=== PATIENT | female | born 1935 | race Caucasian/White ===

== ENCOUNTER 2020-01-05 13:19 | Outpatient (CLI) | payer MEDICARE, MEDICAID, SELFPAY ==
--- NOTE | ~2020-01-05 | CT_ITS ---
EXAMINATION: CT abdomen pelvis w con EXAM DATE: 01/05/2020 14:18 INDICATION: Hiatal hernia. Chronic abdominal pain. TECHNIQUE: Spiral CT of the abdomen and pelvis was performed following intravenous injection of 100 m L Omnipaque 350. Axial, coronal and sagittal images were reviewed. The dose-length product (DLP) fo r this examination was 556.78 mGy-cm. The exposure was tailored according to patient size (auto mA e xposure control), and iterative reconstruction (ASIR) was used as additional dose reduction technique . There is no prior study for comparison. FINDINGS: The liver, pancreas are unremarkable. There are 2 splenic artery aneurysms which are unchan ged. Both appear to be likely thrombosed or mostly thrombosed. Some curvilinear density along the per iphery of the spleen probably from old resolved subcapsular hematoma. Left adrenal gland hyperplasia. Gallbladder not identified, patient likely has had cholecystectomy. Portal and splenic veins are pa tent. Kidneys enhance symmetrically. There is no hydronephrosis. The uterus is not identified and has likely been surgically resected. The bladder is unremarkable. There is no retroperitoneal or p elvic lymphadenopathy. There is moderate scattered arteriosclerotic disease. The appendix is normal. There is small sliding gastroesophageal hiatal hernia. There is mild sigmoid colonic diverticulosis. There is no adjacent inflammatory change to suggest diverticulitis. No mya e intraperitoneal gas. The heart is normal in size. There are no pericardial or pleural effusions. The lung bases are unremarkable. There are no osteoblastic or osteolytic lesions identified. IMPRESSION: 1. Small gastroesophageal hiatal hernia. 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 2. Mild sigmoid diverticulosis. Reviewed, dictated and finalized at location A. IMPRESSION: 1. Small gastroesophageal hiatal hernia. 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 2. Mild sigmoid diverticulosis.
--- NOTE | ~2020-01-05 | CT_ITS ---
EXAMINATION: CT thoracic spine wo con EXAM DATE: 01/05/2020 14:17 INDICATION: Chronic abdominal, back pain. Dyspnea on exertion. Hiatal hernia. TECHNIQUE: Spiral CT thoracic spine wo con was performed without contrast. Axial, coronal and sagit martha images were reviewed. The dose-length product (DLP) for this examination was 1028.10 mGy-cm. Th e exposure was tailored according to patient size (auto mA exposure control), and iterative reconstru ction (ASIR) was used as additional dose reduction technique. There is no prior study for comparison . FINDINGS: There are moderate-sized mid and lower thoracic endplate osteophytes. There is mild to mode rate mid and lower thoracic disc disease. The thoracic central canal and neural foramen are widely pa tent. The vertebral bodies are aligned in the AP dimension. Vertebral body heights are well-maintaine d. There is small gastroesophageal hiatal hernia. No endplate erosive change. IMPRESSION: Mild to moderate mid and lower thoracic spondylosis. Small hiatal hernia. No acute findings. Reviewed, dictated and finalized at location A.
[2020-01-05 14:10] LABS: Estimated Glomerular Filt Rate > 60
== END 2020-01-05 13:20 | disposition home or self-care (01) ==
PROVIDERS: PCP Student in an Organized Health Care Education/Training Program; Visit Provider Student in an Organized Health Care Education/Training Program
DX: M47.814 Spondylosis without myelopathy or radiculopathy, thoracic region (principal); K44.9 Diaphragmatic hernia without obstruction or gangrene; K57.90 Diverticulosis of intestine, part unspecified, without perforation or abscess without bleeding
CPT/HCPCS: 72128; 74177; Q9967

== ENCOUNTER 2020-01-17 01:36 | Outpatient (CLI) | payer MEDICARE, MEDICAID, SELFPAY ==
[2020-01-17 19:05] LABS: SARS-CoV-2 RNA PCR Negative
== END 2020-01-17 01:37 | disposition home or self-care (01) ==
LOC: ANHCOVIDDT 01:36
PROVIDERS: PCP Student in an Organized Health Care Education/Training Program; Visit Provider Internal Medicine Cardiovascular Disease
DX: Z01.812 Encounter for preprocedural laboratory examination (principal); Z20.828 Contact with and (suspected) exposure to other viral communicable diseases
CPT/HCPCS: 87635; C9803; U0003

== ENCOUNTER 2020-01-19 05:22 | Day surgery (SDC) | payer MEDICARE, MEDICAID, SELFPAY ==
[2020-01-18 16:55] VITALS: BMI 34.2
[2020-01-19] VITALS (15 sets, daily range): BP systolic 98–178; BP diastolic 50–84; PULSE 67–98; RESP 14–23; TEMP 35.9–36.7; O2SAT 93–100; BMI 32.5
[2020-01-19 10:51] LABS: Basophils Absolute Auto 0.1 K/mm3 (0.0-0.1); Basophils Percent Auto 0.7 % (0.2-1.2); Eosinophils Absolute Auto 0.1 K/mm3 (0-0.3); Eosinophils Percent Auto 1.3 % (0-4.4); Hematocrit 46.1 % (37.0-47.0); Hemoglobin 15.8 g/dL (12.0-15.0); Immature Granulocyte Absolute 0.03 K/mm3 (0.00-0.031); Immature Granulocyte Percent A 0.3 % (0-0.5); Lymphocytes Absolute Auto 4.39 K/mm3 (0.9-3.2); Mean Corpuscular HGB Conc 34.3 g/dl (32-36); Mean Corpuscular Hemoglobin 31.4 pg (26-34); Mean Corpuscular Volume 91.7 fl (80-100); Mean Platelet Volume 9.7 fl (7.4-10.4); Monocytes Absolute Auto 0.6 K/mm3 (0.1-0.6); Monocytes Percent Auto 5.4 % (2.6-8.5); Neutrophils Absolute Auto 5.7 K/mm3 (1.3-6.7); Neutrophils Percent Auto 52.3 % (45.5-73.1); Platelet Count Result 281 k/mm3 (150-375); Red Blood Count 5.03 M/mm3 (4.2-5.4); Red Cell Distribution Width 12.7 % (11.5-14.5)
[2020-01-19] MEDS: SODIUM CHLORIDE 0.9% IV 500 ML 100 ML IV CONT (11:00)
[2020-01-19 11:01] LABS: Prothrombin Time 13.3 Seconds (11.1-14.7)
[2020-01-19 11:02] LABS: Alanine Aminotransferase 24 U/L (4-35); Albumin Level 3.8 g/dL (3.5-5.1); Alkaline Phosphatase 91 U/L (38-126); Anion Gap 7 mmol/L (8-16); Aspartate Amino Transferase 28 U/L (14-36); Bilirubin,Total 0.5 mg/dL (0.2-1.3); Blood Urea Nitrogen 8 mg/dL (7-17); Calcium 9.2 mg/dL (8.4-10.2); Carbon Dioxide 30 mmol/L (22-30); Chloride 102 mmol/L (98-107); Estimated CRCL calculation 48 ml/min; Estimated Glomerular Filt Rate > 60; Glucose 115 mg/dL (65-105); Potassium 3.4 mmol/L (3.4-5.0); Sodium 139 mmol/L (137-145)
[2020-01-19 12:18] LABS: Activated Clotting Time 313 sec (74-137)
--- NOTE | 2020-01-19 13:37 | WPDHPUPDATE1 ---
History and Physical Update Update Date/Time: 01/19/20 13:37 History and Physical has been reviewed, including an updated exam of the patient. There are NO changes in the patient's condition. Risks, benefits, and alternatives have been discussed and questions answered. Patient agrees to proceed with procedure.
--- NOTE | 2020-01-19 13:37 | WPDMODSED ---
Moderate Sedation Note-Pt Data Patient Data Allergies Allergy/AdvReac Type Severity Reaction Status Date / Time No Known Allergies Allergy Mild Unverified 06/01/08 12:21 Home Medications Medication Instructions Recorded Confirmed Type aspirin [Adult Aspirin] 81 mg PO DAILY 01/18/20 01/18/20 History citalopram [Celexa] 40 mg PO DAILY 01/18/20 01/18/20 History clopidogrel [Plavix] 75 mg PO DAILY 01/18/20 01/18/20 History dicyclomine [Bentyl] 20 mg PO BID 01/18/20 01/18/20 History fluoxetine 20 mg PO DAILY 01/18/20 01/18/20 History isosorbide mononitrate [Imdur] 30 mg PO DAILY 01/18/20 01/18/20 History linaclotide [Linzess] 72 mcg PO DAILY 01/18/20 01/18/20 History lorazepam [Ativan] 1 mg PO BID PRN 01/18/20 01/18/20 History multivitamin with minerals 1 tablet PO DAILY 01/18/20 01/18/20 History [Multiple Vitamin-Minerals] nitroglycerin [Nitrostat] 0.4 mg SUBLINGUAL Q5M PRN 01/18/20 01/18/20 History pantoprazole [Protonix] 40 mg PO QAM 01/18/20 01/18/20 History rosuvastatin [Crestor] 20 mg PO DAILY 01/18/20 01/18/20 History Current Medications: Active Medications Sodium Chloride (Normal Saline Iv) 500 mls @ 100 mls/hr IV CONT .Q5H RODOLFO Sedation/Anesthesia: No previous sedation/anesthesia problems (including family history). PMF Social History Social History Smoking status: Never smoker Second hand tobacco smoke exposure: Yes Alcohol intake: never Substance use: never Living arrangements: with family Gender identity (if verbalized by the patient): Female Spiritual care concerns: No Mod Sed Physical Exam Physical Exam Pre Procedural Exam: Normal: Appearance, Eyes, Ears, Nose, Neck, Throat, Airway, Lungs, Heart Size, Heart Rate, Heart Rhythm, Neuro Exam, Abdomen, Liver, Kidneys, Spleen, Breasts, Genitalia, Extremities and Skin Hours since solid foods: 8 Hours since liquid intake: 8 Internal Medicine - PN: Obj Da Vital Signs Vital Signs: Vital Signs - 24 hr 01/19/20 10:56 Temperature 36.2 C L Pulse Rate 67 Respiratory Rate 20 Blood Pressure 138/71 Pulse Oximetry 97 Meds/Results Medications: Active Medications Generic Name Dose Route Start Last Admin Trade Name Yoly PRN Reason Stop Dose Admin Sodium Chloride 500 mls @ 100 mls/hr 01/19/20 06:45 Normal Saline Iv IV CONT .Q5H RODOLFO Labs CBC & Chem 7: 01/19/20 10:31 01/19/20 10:31 Labs: Laboratory Results - last 24 hr 01/19/20 01/19/20 01/19/20 10:31 10:31 10:31 WBC 11.0 H RBC 5.03 Hgb 15.8 H Hct 46.1 MCV 91.7 MCH 31.4 MCHC 34.3 RDW 12.7 Plt Count 281 MPV 9.7 Immature Gran % (Auto) 0.3 Neut % (Auto) 52.3 Lymph % (Auto) 40.0 [place] % (Auto) 5.4 Eos % (Auto) 1.3 Baso % (Auto) 0.7 Lymph # (Auto) 4.39 H [place] # (Auto) 0.6 Eos # (Auto) 0.1 Baso # (Auto) 0.1 Abs Immat Gran (auto) 0.03 Absolute Neuts (auto) 5.7 Absolute Nucleated RBC 0.0 Nucleated RBC % 0.0 PT 13.3 INR 1.0 Activ Coag Time Kaolin Sodium 139 Potassium 3.4 Chloride 102 Carbon Dioxide 30 Anion Gap 7 L BUN 8 Creatinine 0.70 Estim Creat Clear Calc 48 Estimated GFR > 60 Glucose 115 H Calcium 9.2 Total Bilirubin 0.5 AST 28 ALT 24 Alkaline Phosphatase 91 Total Protein 7.0 Albumin 3.8 01/19/20 12:13 WBC RBC Hgb Hct MCV MCH MCHC RDW Plt Count MPV Immature Gran % (Auto) Neut % (Auto) Lymph % (Auto) [place] % (Auto) Eos % (Auto) Baso % (Auto) Lymph # (Auto) [place] # (Auto) Eos # (Auto) Baso # (Auto) Abs Immat Gran (auto) Absolute Neuts (auto) Absolute Nucleated RBC Nucleated RBC % PT INR Activ Coag Time Kaolin 313 Sodium Potassium Chloride Carbon Dioxide Anion Gap BUN Creatinine Estim Creat Clear Calc Estimated GFR Glucose Calcium Total Bilirubin AST ALT Alkaline Phosphatase Total Protein Albumin ASA
--- NOTE | 2020-01-19 13:37 | WPDCARDPROC ---
Cardiac Cath Procedure Note Date of procedure:: 01/19/20 Performing physician:: Zofia Lazaro MD date of service 01/19/2020 Indication:: shortness of breath exertion Brief clinical history:: 84-year-old female with past history of 5 stents placed at [place] who was evaluated by me in the office for dyspnea on exertion that started several months ago but is worse on minimal exertion now. Given this history she was brought into denture laboratory technician to define coronary anatomy. Procedure Procedure performed:: 1-Moderate sedation that started at 11:44 a.m. and ended at 1:33 p.m. using 3mg of Versed and 75mcg fentanyl. The registered nurse was sujatha wan 2-Selective left and right coronary angiogram. 3-Left heart catheterization with measurement of LVEDP and measurement of gradient across aortic valve. 4- LV angiogram. 5- the prominent drug-eluting stent 2.75 x12 to mid PDA 6-Right common femoral arterial angiogram. 7-Deployment of 6 [place] Angio-Seal. Sedation/Medication given:: Moderate sedation. Access site:: Right common femoral artery. Estimated blood loss:: 10cc Procedure note:: After informed consent patient was brought in to denture laboratory technician with the was draped and prepped in usual manner. Moderate sedation was given and the right groin was infiltrated using 1% lidocaine. Five [place] sheath was obtained using micropuncture needle and the modified Seldinger technique. Selective left coronary angiogram was done using JL4 catheter with the tip of the catheter placed in the left main coronary artery. Selective right coronary angiogram was done using JR4 catheter with the tip of the catheter placed to the right coronary artery. After that 5 [place] pigtail catheter was advanced across the aortic valve into the left ventricle with measurement of LVEDP and measurement of gradient across aortic valve. LV angiogram was done. Right common femoral arterial angiogram was done. After that we tried several guides to engage the RCA. JR4 managed to engage the RCA but provided poor support. THEN WE TRIED AL1, AR1, WRP, multipurpose 1 and eventually we had to use the JR4 accepting the poor support. then we managed to wire the PDA with multiple attempts using different wires however the BMW wire was successful. Luge wire, whisper wire could not do the work. we had to use a GuideLiner given severe tortuosity in the mid RCA to the level the stent. then direct stenting of the PDA using 2.5 x 12 and a normal pressure for 20 seconds. Findings:: 1- left coronary artery is a large artery that divides into large LAD, large circumflex artery and large ramus. Left main is free of disease. 2- left anterior descending artery is a large artery that runs and wraps around the apex. has patent stents covering the proximal all the way to the distal end. 3- leftcircumflex artery is a large artery Large artery with minimal irregularities. The very distal end of the left circumflex artery with artery small in size has about 80%. 4- The ramus intermedius large artery and has ostial 30%. 4- right coronary artery is Large artery, dominant, very tortuous. Ostial there is about at least 50-60%. dampening of the pressures upon engagement. 5- LVEDP was 10 mm Hg and no gradient across aortic valve. 5- LV angiogram shows no significant wall motion abnormalities and ejection fraction 65%. 6- opening arterial pressure was 120/80 and closing pressure was 168/85. 7- right femoral artery angiogram shows no significant disease in the right common femoral artery. Conclusion:: Very challenging case however completed successfully with stenting of the PDA. Ostial RCA at least 50% and will need to be assessed. If patient continues to have symptoms most likely she will need to be stented in that area. Assessment and Plan Additional Plan continue aspirin and Plavix and aggressive risk factor modification for CAD.
[2020-01-19 13:42] LABS: Activated Clotting Time 241 sec (74-137)
--- NOTE | 2020-01-19 13:47 | ECG_ITS ---
Measurements Intervals [place] Rate: 73 P: 46 [place]: 161 QRS: 9 QRSD: 82 T: 80 QT: 387 QTc: 429 Interpretive Statements SINUS RHYTHM MINIMAL Q WAVES- INFERIOR LEADS BORDERLINE ST-T WAVE ABNORMALITY- ANTEROLAT/HIGH LAT LEADS BASELINE ARTIFACT- V5 BORDERLINE ECG Electronically Signed On 01-19-2020 14:36:47 CDT by Saúl Kapadia D.O.
[2020-01-19] MEDS: SODIUM CHLORIDE 0.9% IV 1,000 ML 125 ML IV CONT (14:00)
[2020-01-19] MEDS: ACETAMINOPHEN 500 MG TABLET 1000 MG PO ×2 (15:20→20:34)
[2020-01-19] MEDS: ONDANSETRON INJ 4 MG/2 ML VIAL IV PUSH (15:37)
[2020-01-19] MEDS: NITROGLYCERIN SL 0.4 MG TABLET SUBLINGUAL (15:38)
[2020-01-19] MEDS: fentaNYL CITRATE INJ (*CRX) 100 MCG/2 ML VIAL 25 MCG IV PUSH (15:39)
--- NOTE | 2020-01-19 15:44 | ECG_ITS ---
Measurements Intervals [place] Rate: 78 P: 9 [place]: 134 QRS: 30 QRSD: 82 T: 126 QT: 387 QTc: 442 Interpretive Statements SINUS RHYTHM ST-T WAVE ABNORMALITY IN HIGH LATERAL LEADS- CONSIDER ISCHEMIA BASELINE ARTIFACT- I, II, III, AVR, AVL, AVF, V1-V6 ABNORMAL ECG Electronically Signed On 01-19-2020 15:53:33 CDT by Saúl Kapadia D.O.
--- NOTE | 2020-01-19 16:34 | PC.NURSE ---
Patient complaining of Chest pain during cath and post procedure, Zohra Kruger contacted Tylenol, Nitro, Zofran and Fentanyl ordered and given. Additional EKG obtained, no change. Zohra came to see patient and now patient has had relief. Will continue to monitor.
[2020-01-19] MEDS: DICYCLOMINE HCL 10 MG CAPSULE 20 MG PO (17:43)
[2020-01-19] MEDS: LORazepam (*CRX) 1 MG TABLET PO (20:33)
--- NOTE | 2020-01-19 23:53 | ECG_ITS ---
Measurements Intervals [place] Rate: 79 P: 31 PA: 147 QRS: 7 QRSD: 81 T: 65 QT: 377 QTc: 433 Interpretive Statements SINUS RHYTHM MINIMAL Q WAVES- INFERIOR LEADS BORDERLINE ST-T WAVE ABNORMALITY- ANTEROLAT/HIGH LAT LEADS BORDERLINE ECG Electronically Signed On 01-20-2020 7:02:06 CDT by Saúl Kapadia D.O.
[2020-01-20] VITALS (10 sets, daily range): BP systolic 95–112; BP diastolic 39–60; PULSE 67–85; RESP 15–21; TEMP 36.2–36.9; O2SAT 92–94
[2020-01-20] MEDS: NITROGLYCERIN SL 0.4 MG TABLET SUBLINGUAL (00:15)
--- NOTE | 2020-01-20 00:28 | PC.NURSE ---
One SL nitro given at 0015 with midsternal chest pain rated 4. Checked patient at 0025 and patient states pain is 2-3. BP 95/41 after one SL nitro. Unable to give morphine d/t BP. Patient states pain is tolerable. Dr. Amin states doctor will evaluate patient in the morning.
[2020-01-20] MEDS: MORPHINE SULFATE (*CRX) 2 MG/ML INJ 1 MG IV PUSH (01:27)
[2020-01-20] MEDS: ACETAMINOPHEN 500 MG TABLET 1000 MG PO ×2 (02:22→09:09)
[2020-01-20 05:30] LABS: Anion Gap 3 mmol/L (8-16); Blood Urea Nitrogen 10 mg/dL (7-17); Calcium 8.1 mg/dL (8.4-10.2); Carbon Dioxide 30 mmol/L (22-30); Chloride 103 mmol/L (98-107); Estimated CRCL calculation 47 ml/min; Estimated Glomerular Filt Rate > 60; Glucose 105 mg/dL (65-105); Potassium 3.3 mmol/L (3.4-5.0); Sodium 136 mmol/L (137-145)
[2020-01-20] MEDS: ROSUVASTATIN 10 MG TABLET 20 MG PO (09:09)
[2020-01-20] MEDS: DICYCLOMINE HCL 10 MG CAPSULE 20 MG PO (09:09)
[2020-01-20] MEDS: ISOSORBIDE MONONITRATE 30 MG TAB.ER.24H PO (09:09)
[2020-01-20] MEDS: CLOPIDOGREL BISULFATE 75 MG TABLET PO (09:09)
[2020-01-20] MEDS: ASPIRIN 81 MG CHEWABLE TABLET PO (09:09)
[2020-01-20] MEDS: THERAPEUTIC MULTIVITAMINS/MINERALS TAB (*BKC) 1 TABLET PO (09:09)
[2020-01-20] MEDS: PANTOPRAZOLE 40 MG TABLET PO (09:09)
[2020-01-20] MEDS: LORazepam (*CRX) 1 MG TABLET PO (09:10)
[2020-01-20 10:40] LABS: Magnesium 1.7 mg/dL (1.6-2.3)
[2020-01-20] MEDS: POTASSIUM CHLORIDE 20 MEQ TABLET 40 MEQ PO (11:31)
--- NOTE | 2020-01-20 12:28 | PM.DS ---
DS: Admitting Diagnosis Admitting Diagnosis Admitting Diagnosis: unstable angina DS: Discharge Diagnosis Discharge Diagnosis (1) CAD (coronary artery disease), [place] coronary artery: Code(s): I25.10 - Atherosclerotic heart disease of [place] coronary artery without angina pectoris Status: Acute Assessment and Plan: Cardiac catheterization 01/19/2020:1- left coronary artery is a large artery that divides into large LAD, large circumflex artery and large ramus. Left main is free of disease. 2- left anterior descending artery is a large artery that runs and wraps around the apex. has patent stents covering the proximal all the way to the distal end. 3- left circumflex artery is a large artery Large artery with minimal irregularities. The very distal end of the left circumflex artery with artery small in size has about 80%. 4- The ramus intermedius large artery and has ostial 30%. 4- right coronary artery is Large artery, dominant, very tortuous. Ostial there is about at least 50-60%. dampening of the pressures upon engagement. 5- LVEDP was 10 mm Hg and no gradient across aortic valve. 5- LV angiogram shows no significant wall motion abnormalities and ejection fraction 65%. 6- opening arterial pressure was 120/80 and closing pressure was 168/85. 7- right femoral artery angiogram shows no significant disease in the right common femoral artery. She proceeded on to very challenging case however completed successfully with stenting of the PDA. Ostial RCA at least 50% and will need to be assessed. If patient continues to have symptoms most likely she will need to be stented in that area. She had pain after the procedure. EKGs were unchanged. She did receive some fentanyl after Tylenol was tried. She also had some discomfort overnight. On assessment in the morning this discomfort has been there for some time. There is discomfort when she takes in a deep breath, coughs, moves in certain directions. Recommend Tylenol 650 mg at least every 8 hours. Due to the discomfort she had post PCI and need for evaluation of the right coronary artery willl have her see Dr Lazaro on Thursday, 04/2019. (2) Hypokalemia: Code(s): E87.6 - Hypokalemia Status: Acute Assessment and Plan: Supplemented. Will recheck BMP on 01/23/2020 DS: Summary Hospital Course Reason for hospitalization: CAD with worsening dyspnea on exertion Hospital Course: 84-year-old female with past history of 5 stents placed to [place] who was evaluated in the office by Dr Lazaro for dyspnea on exertion that started several months ago but is worse with minimal exertion. Cardiac catheterization was recommended. See results above. She had chest discomfort after the procedure. Tylenol was tried however did not relieve her discomfort and a dose of fentanyl did relieve her pain. She had more discomfort overnight. EKGs were unchanged. Troponin rise and conchis expected post procedure. On evaluation in the morning the discomfort is reproducible with deep inspiration, movement and chest palpation. Recommend Tylenol 650 mg at least every 8 hours around the clock over the weekend. Due to the need for evaluation of the right coronary artery she will see Dr Lazaro on 01/23/2020. She was also hypokalemic. Potassium was supplemented. She was some supplementation over the weekend and repeat a BMP on Thursday01/23/2020. Time Spent with Patient Time attestation: Total time spent providing and/or coordinating discharge services: 20 minutes in the room discussing her chest pain, treatment with Tylenol for musculoskeletal discomfort, activity restrictions and follow-up. 10 minutes to do discharge orders. 10 minutes to do discharge summary. Total time providing and coronary discharge services: 40 minutes. Exam Narrative: E
[2020-01-20] MEDS: MAGNESIUM OXIDE 400 MG TABLET PO (12:29)
== END 2020-01-20 13:00 | disposition home or self-care (01) ==
LOC: ANHCATHLAB 10:16 → ANHCPC 16:00
PROVIDERS: Internal Medicine Cardiovascular Disease; Nurse Practitioner Adult Health; PCP Student in an Organized Health Care Education/Training Program; Visit Provider Internal Medicine Cardiovascular Disease
PROC: 4A023N7 Measurement of Cardiac Sampling and Pressure, Left Heart, Percutaneous Approach (ICD-10-PCS; CPT 93452; principal; 2020-01-19 11:30)
DX: I25.10 Atherosclerotic heart disease of native coronary artery without angina pectoris (principal); E87.6 Hypokalemia; R06.09 Other forms of dyspnea; R07.9 Chest pain, unspecified; Z95.5 Presence of coronary angioplasty implant and graft; Z79.02 Long term (current) use of antithrombotics/antiplatelets; Z79.82 Long term (current) use of aspirin
CPT/HCPCS: 36415; 80048; 80053; 83735; 84484; 85025; 85610; 93005; 93458; A9270; C1760; C1769; C1874; C1887; C1894; C9600; G0269; J0461; J0583; J1644; J2250; J2270; J2405; J3010; J7030; J7040

== ENCOUNTER 2020-01-23 11:22 | Outpatient (CLI) | payer MEDICARE, MEDICAID, SELFPAY ==
--- NOTE | ~2020-01-23 | CT_ITS ---
EXAMINATION:CT chest high resolution wo co DATE: 01/23/2020 14:44 INDICATION: Dyspnea on exertion. TECHNIQUE: Computed tomography (CT) of the chest was performed without intravenous contrast. Automate d exposure control and iterative reconstruction technique were employed. The dose-length product (DLP ) was 239.55 mGy-cm. COMPARISON: CT abdomen and pelvis 07/10/17 FINDINGS: There is mild emphysema. There is mild bronchiectasis in the inferior lungs. There are smal l pleural effusions. There are chronic mild peripheral reticular opacities in the lungs with a lower lung predominance. There are a few pulmonary nodules measuring up to 3 mm, likely benign. A calcified left lung nodule and calcified left hilar lymph nodes are consistent with old granulomatous disease. Cardiomegaly is noted with left atrial enlargement. There are coronary artery calcifications. No per icardial effusion. There is mild mediastinal lymphadenopathy, likely reactive. There are peripheral c alcifications in the spleen, likely from old injury. There is a 1.9 cm rim calcified saccular aneurys m of the splenic artery. There is a 9 mm rim calcified saccular aneurysm of the splenic artery. There is a small sliding hiatal hernia. There are bridging endplate osteophytes at multiple levels in the spine, consistent with diffuse idiopathic skeletal hyperostosis (DISH). Thoracic kyphosis and severe spondylosis are noted. There is mild chronic anterior wedging of T7 vertebral body. IMPRESSION: 1. Small pleural effusions. 2. Mild chronic lung disease including mild emphysema and mild lower lung bronchiectasis. 3. Cardiomegaly. 4. Small sliding hiatal hernia. Reviewed, dictated and finalized at location A. AL BASIC PROGRAMMER IMPRESSION: 1. Small pleural effusions. 2. Mild chronic lung disease including mild emphysema and mild lower lung bronc hiectasis. 3. Cardiomegaly. 4. Small sliding hiatal hernia.
[2020-01-23 12:51] LABS: Anion Gap 4 mmol/L (8-16); Blood Urea Nitrogen 6 mg/dL (7-17); Calcium 8.7 mg/dL (8.4-10.2); Carbon Dioxide 31 mmol/L (22-30); Chloride 103 mmol/L (98-107); Estimated Glomerular Filt Rate > 60; Glucose 111 mg/dL (65-105); Potassium 3.7 mmol/L (3.4-5.0); Sodium 138 mmol/L (137-145)
== END 2020-01-23 11:23 | disposition home or self-care (01) ==
PROVIDERS: PCP Student in an Organized Health Care Education/Training Program; Referring Provider Nurse Practitioner Adult Health; Visit Provider Internal Medicine Cardiovascular Disease
DX: E87.6 Hypokalemia (principal); R06.00 Dyspnea, unspecified; J90 Pleural effusion, not elsewhere classified; I51.7 Cardiomegaly; K44.9 Diaphragmatic hernia without obstruction or gangrene
CPT/HCPCS: 36415; 71250; 80048; 83735

== ENCOUNTER 2020-01-24 08:16 | Inpatient (IN) | payer MEDICARE, MEDICAID, SELFPAY ==
[2020-01-24] VITALS (22 sets, daily range): BP systolic 128–172; BP diastolic 53–95; PULSE 84–108; RESP 16–31; TEMP 35.7–37; O2SAT 93–96; BMI 32.9; BMI 33.7
--- NOTE | ~2020-01-24 | XR_ITS ---
EXAMINATION: XR chest 1V portable INDICATION: Chest pain TECHNIQUE: Portable AP chest at 0905 hours COMPARISON: CT from yesterday FINDINGS: There are small pleural effusions. Stable cardiomegaly is noted. There are coronary artery stents. There is mild by basilar atelectasis. No focal airspace opacity is identified. There is no pn eumothorax. IMPRESSION: 1. Cardiomegaly. 2. Small pleural effusions. Reviewed, dictated and finalized at location A. NG AND FILLING MACHINE OPERATOR
--- NOTE | ~2020-01-24 | CT_ITS ---
EXAMINATION: CT brain wo con EXAM DATE: 01/24/2020 11:23 INDICATION: Intermittent confusion . Dizziness. TECHNIQUE: Spiral CT of the head was performed without contrast. Axial, coronal and sagittal images were reviewed. The dose-length product (DLP) for this examination was 605.33 mGy-cm. The exposure w as tailored according to patient size, and iterative reconstruction (ASIR) was used as additional dos e reduction technique. There is no prior study for comparison. FINDINGS: There is no acute intraparenchymal hemorrhage. No evidence of intraparenchymal brain mass lesion. No evidence of acute infarction. Please note that initial head CT has limited sensitivity f or small or acute infarctions. There is moderate periventricular and subcortical hypodensity, nonspec ific but probably related to small vessel ischemic disease. There is moderate prominence of the sul ci and ventricles related to cerebral atrophy. There is intracranial carotid arteriosclerosis. The re are no extra-axial collections. There is no mass effect or midline shift. The orbits are unremar kable. Soft tissue is unremarkable. The visualized sinuses and mastoid air cells are well aerated. IMPRESSION: 1. No acute intracranial findings. 2. Chronic age related findings. Reviewed, dictated and finalized at location B. DIP TINNING SUPERVISOR
--- NOTE | ~2020-01-24 | XR_ITS ---
EXAMINATION: XR chest 2V DATE: 01/26/2020 09:20 INDICATION: Volume overload TECHNIQUE: PA and lateral views of the chest are obtained. COMPARISON: 01/24/2020 FINDINGS: There are small pleural effusions. Minimal airspace opacities are present in the lung bases . Stable cardiomegaly is noted. There is no pneumothorax. Coronary artery stents are noted. There is moderate thoracic spondylosis. IMPRESSION: 1. Small pleural effusions. 2. Minimal airspace opacities of the lung bases, consistent with atelectasis versus pneumonia. 3. Cardiomegaly. Reviewed, dictated and finalized at location A. RSHED COORDINATOR IMPRESSION: 1. Small pleural effusions. 2. Minimal airspace opacities of the lung bases, consistent with atelectasis ve rsus pneumonia. 3. Cardiomegaly.
--- NOTE | 2020-01-24 08:47 | ECG_ITS ---
Measurements Intervals [place] Rate: 98 P: 9 SD: 161 QRS: 7 QRSD: 86 T: 250 QT: 281 QTc: 360 Interpretive Statements SINUS OR ECTOPIC ATRIAL RHYTHM WITH SHORT SD INTERVAL FREQUENT ATRIAL PREMATURE COMPLEXES BORDERLINE ST-T WAVE ABNORMALITY- DIFFUSE LEADS BASELINE ARTIFACT- I, II, III, AVR, AVL, AVF, V6 ABNORMAL ECG Electronically Signed On 01-24-2020 13:34:08 DIAGRAMMER by Saúl Kapadia D.O.
[2020-01-24 08:58] LABS: Basophils Absolute Auto 0.1 K/mm3 (0.0-0.1); Basophils Percent Auto 0.7 % (0.2-1.2); Eosinophils Absolute Auto 0.4 K/mm3 (0-0.3); Eosinophils Percent Auto 3.2 % (0-4.4); Hematocrit 41.2 % (37.0-47.0); Hemoglobin 13.7 g/dL (12.0-15.0); Immature Granulocyte Absolute 0.03 K/mm3 (0.00-0.031); Immature Granulocyte Percent A 0.2 % (0-0.5); Lymphocytes Percent Auto 44.4 % (18.3-44.2); Mean Corpuscular HGB Conc 33.3 g/dl (32-36); Mean Corpuscular Hemoglobin 30.7 pg (26-34); Mean Corpuscular Volume 92.4 fl (80-100); Mean Platelet Volume 9.9 fl (7.4-10.4); Monocytes Absolute Auto 0.8 K/mm3 (0.1-0.6); Monocytes Percent Auto 5.5 % (2.6-8.5); Neutrophils Absolute Auto 6.2 K/mm3 (1.3-6.7); Platelet Count Result 398 k/mm3 (150-375); Red Blood Count 4.46 M/mm3 (4.2-5.4); Red Cell Distribution Width 13.1 % (11.5-14.5); White Blood Count 13.5 K/mm3 (4.5-10.0)
--- NOTE | 2020-01-24 09:05 | ED.GENADULT ---
HPI - General Adult General Chief complaint: Unspecified Stated complaint: CP Time Seen by Provider: 01/24/20 08:22 Source: patient and family Mode of arrival: ambulatory Limitations: dementia History of Present Illness HPI narrative: This patient is an 84 year old female with history of CAD s/p stent, fibromyalgia, IBS, and hyperlipidemia who presents for evaluation of shortness of breath and intermittent chest pain. Patient reports she had a cardiac catheterization last week and she has been sick since the procedure. She reports she has been having cough, nausea, and body aches since her procedure. Her daughter states patient has been complaining of intermittent chest pain but patient denies chest pain. She was given aspirin and nitroglycerin x 1 by EMS. She also reports sob that is chronic but her daughter states she seems worse. Her daughter also reports when they woke patient up this morning she appeared to be confused but that resolved within minutes. Related Data Home Medications Medication Instructions Recorded Confirmed Linzess 72 mcg PO DAILY 01/18/20 01/24/20 aspirin 81 mg PO DAILY 01/18/20 01/24/20 clopidogrel [Plavix] 75 mg PO DAILY 01/18/20 01/24/20 dicyclomine 20 mg PO BID PRN 01/18/20 01/24/20 fluoxetine 20 mg PO DAILY 01/18/20 01/24/20 isosorbide mononitrate 30 mg PO DAILY 01/18/20 01/24/20 multivitamin with minerals 1 tablet PO DAILY 01/18/20 01/24/20 [Multiple Vitamin-Minerals] nitroglycerin [Nitrostat] 0.4 mg SUBLINGUAL Q5M PRN 01/18/20 01/24/20 pantoprazole [Protonix] 40 mg PO QAM 01/18/20 01/24/20 rosuvastatin [Crestor] 20 mg PO DAILY 01/18/20 01/24/20 cyanocobalamin (vitamin B-12) 1,000 mcg IM MONTHLY 01/24/20 01/24/20 sucralfate 10 ml PO BID 01/24/20 01/24/20 umeclidinium-vilanterol [Anoro 1 inh INHALATION DAILY 01/24/20 01/24/20 Ellipta] Allergies Allergy/AdvReac Type Severity Reaction Status Date / Time No Known Allergies Allergy Mild Verified 01/24/20 13:54 Review of Systems Review of Systems: All systems reviewed & are unremarkable except as noted in HPI and below Cardiovascular: Cardiovascular: Reports chest pain and Reports chest pain at rest Respiratory: Respiratory: Denies chest congestion, Reports cough and Denies hemoptysis [facility] Past Medical History Medical History Chronic obstructive pulmonary disease Coronary artery disease Fibromyalgia Gastroesophageal reflux disease Hypertension Irritable bowel syndrome Surgical History Surgical History History of cardiac catheterization History of stent x6. Status post drug-eluting stent to the right PDA on 01/19/[address] Lazaro. Family History Family History Sibling Emphysema of lung Chronic obstructive pulmonary disease Hypertension Father Asthma Social History Social History Social History: Surrogate decision maker: Code status: Smoking status: Former smoker Second hand tobacco smoke exposure: Yes Alcohol intake: never Substance use: never Additional living arrangements comments: Resides in [place]. Gender identity (if verbalized by the patient): Female Spiritual care concerns: No Exam Const: General: cooperative, alert, awake, Physically active and ill appearing Nutritional Appearance: well nourished HENMT: Head: normocephalic and atraumatic Ears: TM's normal bilaterally Face and sinus: face symmetric Mouth: Yes Normal oral and palatal mucosa present, Yes lip normal, Yes oropharynx normal and Yes moist mucous membranes Eyes: EOM: EOMs intact bilaterally Chest: Chest palpation & inspection: tenderness Resp: Effort & Inspection: normal respiratory effort and able to speak in complete sentences Auscultation: rales bilateral in the lower l
[2020-01-24 09:22] LABS: Anion Gap 7 mmol/L (8-16); Blood Urea Nitrogen 5 mg/dL (7-17); Calcium 9.2 mg/dL (8.4-10.2); Carbon Dioxide 30 mmol/L (22-30); Chloride 103 mmol/L (98-107); Estimated CRCL calculation 55 ml/min; Estimated Glomerular Filt Rate > 60; Glucose 120 mg/dL (65-105); Potassium 3.6 mmol/L (3.4-5.0); Sodium 140 mmol/L (137-145)
--- NOTE | 2020-01-24 09:31 | PC.NURSE ---
Pt ambulatory to bathroom for clean catch urine collection. Pt voided, missing the speciman nascimento provided. Pt assisted back to bed, note that pt is short of breath with exertion. Spo2 93-94% after returning from bathroom. Dr. Posadas made aware.
[2020-01-24 09:36] LABS: Troponin I 0.204 ng/mL (0.000-0.034)
[2020-01-24 09:38] LABS: INR 0.9; Partial Thromboplastin Time 26.9 SECONDS (22.3-36.8); Prothrombin Time 13.1 Seconds (11.1-14.7)
--- NOTE | 2020-01-24 09:39 | ECG_ITS ---
Measurements Intervals [place] Rate: 88 P: -20 [place]: 128 QRS: 8 QRSD: 85 T: 32 QT: 385 QTc: 468 Interpretive Statements SINUS RHYTHM FREQUENT ATRIAL PREMATURE COMPLEXES ST-T WAVE ABNORMALITY IN HIGH LATERAL LEADS- CONSIDER ISCHEMIA ABNORMAL ECG Electronically Signed On 01-24-2020 16:25:39 SILICATOR by Saúl Kapadia D.O.
[2020-01-24 10:05] LABS: Alveolar/Arterial O2 Gradient 40.5 mmHg; Base Excess ABG 2.1 mEq/l (+/-2.0); Carboxyhemoglobin 1.5 % THb (0-2.0); Device ROOM AIR; Fractional Inspired Oxygen 21 %; HCO3 ABG 24.7 mEq/l (22.0-26.0); Methemoglobin ABG 0.2 %THb (0-1.5); Modified Allen's Test Pass; Oxygen Saturation ABG 95.6 % (95.0-100.0); Oxyhemoglobin 93.3 % THb (90.0-100.0); PCO2 ABG 32.3 mmHg (35.0-45.0); PO2 ABG 70.6 mmHg (80.0-100.0); PO2 FiO2 Ratio Arterial Blood 3.36 %; Site Drawn RIGHT RADIAL; Total Hemoglobin 13.7 g/dL (12.0-18.0); pH ABG 7.501 (7.350-7.450)
--- NOTE | 2020-01-24 11:18 | PC.NURSE ---
Pt helped up to bedside commode for urine. Pt states she is willing to be admitted after speaking with Dr. Posadas. UA sent as ordered. Report ot Lynne Page RN, to continue care. Awaiting admission orders at present time.
[2020-01-24 11:23] LABS: Add Urine Microscopic? NO; Appearance Urine Clear (Clear); Bilirubin Urine Negative (Negative); Blood Urine Negative (Negative); Color Urine Colorless (Yellow); Glucose Urine UA Negative (Negative); Ketones Urine Negative (Negative); Leukocyte Esterase Ur Negative LEU/UL (Negative); Nitrate Urine Negative (Negative); Protein Urine Negative (Negative); Urobilinogen Urine Negative mg/dL (<2.0)
[2020-01-24 11:31] LABS: Specific Grav Ur 1.004 (1.001-1.035)
[2020-01-24 12:32] LABS: Troponin I 0.152 ng/mL (0.000-0.034)
--- NOTE | 2020-01-24 13:00 | PC.NURSE ---
Patient and family updated that patient will go to room 200 soon. Report called to KARRI Amaral in IMU.
--- NOTE | 2020-01-24 13:13 | ADMGEN ---
This patient, Caroline Ferguson, was admitted to IMU Room 200-01. Patient/family oriented to hospital policies and general routines including ID bracelet, bed and alarms, visiting hours, pain management, procedures, bathroom and other care routines, personal items, smoking policy, room service/diet, and visiting hours. Information on how to activate the Rapid Response Team has been discussed. Patient/Family are encouraged to report perceived risks to care and to ask questions if they do not understand what they are told or what they should do.
--- NOTE | 2020-01-24 13:30 | PM.IMHP ---
H&P: HPI History of Present Illness Date/Time: 01/24/20 13:30 Chief complaint: Intermittent chest pain and shortness of breath. Narrative: Caroline Ferguson is an 84-year-old female with coronary artery disease, hypertension, COPD, and GERD who presented to the emergency department earlier today via EMS from home for evaluation of intermittent chest pain and shortness of breath. She had a cardiac catheterization on 01/19/[address] Lazaro for evaluation of ongoing dyspnea and underwent a challenging PCI with drug-eluting stent to the PDA. The vessel was very torturous and she was also noted to have at least 50% ostial RCA lesion, 80% small distal circumflex lesion, and non obstructing ramus disease. She was kept overnight due to chest pain thereafter with a rise in her troponins to around 2 with expected fall and she was discharged home, chest pain-free, the following day. Unfortunately she has not felt well since that time, with continued dyspnea with minimal exertion and intermittent chest pain associated with nausea, shortness of breath, and hot flashes. Additionally she reports occasional palpitations and ?quivering heart? which seems to occur mainly at nighttime, which is disruptive to her sleep. The chest pain resolves spontaneously within about 5 to 10 minutes and she has not tried nitroglycerin. A chest CT on 01/23/2020 which showed small pleural effusions, cardiomegaly, and mild chronic lung disease including mild emphysema and mild lower lung bronchiectasis. With further questioning she has had a cough, occasionally productive of yellowish sputum and a deep cough, which developed the night after her cardiac catheterization ?and I think I probably have pneumonia.? She is not currently having chest pain or palpitations at the time my evaluation. No fever, chills, or sweats. She denies sinus congestion, rhinorrhea, otalgia, and odynophagia. Appetite has been as per usual, but she reports that she always has a bad taste in her mouth, but this is not new. No anosmia or dysgeusia. She denies vomiting. No dysphagia or concerns for aspiration. No sick contacts or exposure to those positive for COVID-19. No history of atrial fibrillation. Review of Systems Review of Systems: Narrative: Twelve systems were reviewed with pertinent positives and negatives as per HPI. No headache or neck ache. She denies syncope and near syncope. No vertigo. No vomiting. She has had longstanding problems with constipation over the years however her bowels are more regular after she was started on Linzess. She has not been sleeping well recently due to ?quivering? in her heart, and she goes on to say that for decades she took lorazepam 0.5 mg at bedtime for sleep however her new primary care provider discontinued that and instead start her on fluoxetine. Denies history of sleep apnea. No pleuritic pain orthopnea, or edema. Except as documented, all other systems were reviewed and are negative. PENDING SALE TO [facility] Past Medical History Medical History (Updated 01/24/20 @ 20:57 by Leah Adams PA-C) Anxiety Chronic obstructive pulmonary disease Coronary artery disease Fibromyalgia Gastroesophageal reflux disease Hypertension Irritable bowel syndrome Surgical History Surgical History (Updated 01/24/20 @ 20:57 by Leah Adams PA-C) History of cardiac catheterization History of stent x6. Status post drug-eluting stent to the right PDA on 01/19/[address] Lazaro. History of carpal tunnel surgery of right wrist History of cataract extraction History of cholecystectomy History of hysterectomy History of total left knee replacement Family History Family History Sibling Emphysema of lung Chronic obstructive pulmonary disease Hypertension Father Asthma Social History Social History (Updated 01/24/20 @ 20:58 by Leah Adams PA-C) Social History: Surrogate decision maker: Kate Guerrero and
[2020-01-24 15:36] LABS: Troponin I 0.137 ng/mL (0.000-0.034)
--- NOTE | 2020-01-24 15:52 | PM.CNCAR ---
Assessment and Plan Assessment and plan (1) CAD (coronary artery disease), [place] coronary artery: Code(s): I25.10 - Atherosclerotic heart disease of [place] coronary artery without angina pectoris Status: Acute Assessment and Plan: significant disease. probable [place] last week. It was a complicated case due to tortuosity. Continue aspirin and clopidogrel. Also continue isosorbide mononitrate, rosuvastatin. Will start her on metoprolol tartrate 12.5 mg p.o. b.i.d. both because of her palpitations and as an antianginal agent. Plan on repeat coronary angiogram on following diuresis and other workup including a 2D echocardiogram with Doppler to ensure there is no significant pericardial effusion. This also will allow some time for workup for her elevated white blood cell count per hospitalist if needed. (2) Elevated troponin: Code(s): R77.8 - Other specified abnormalities of plasma proteins Status: Acute Assessment and Plan: Trending down. Likely secondary to event from last week. (3) Chest pain: Code(s): R07.9 - Chest pain, unspecified Status: Acute Assessment and Plan: As above (4) Dyspnea: Code(s): R06.00 - Dyspnea, unspecified Status: Acute Assessment and Plan: severe dyspnea with mild activity. She does have some pleural effusions. Will start with some diuresis with 40 mg of IV furosemide. Potassium chloride 40 mEq p.o. x1 will also be given. Echocardiogram will be ordered. Probably anginal equivalent (5) Essential hypertension: Code(s): I10 - Essential (primary) hypertension Status: Acute (6) Palpitations: Code(s): R00.2 - Palpitations Status: Acute Assessment and Plan: metoprolol will be started. Telemetry monitoring (7) Fibromyalgia: Code(s): M79.7 - Fibromyalgia Status: Acute Assessment and Plan: she does have fibromyalgia pain but her pain last week and recently is different History of Present Illness History of Present Illness Consult date/time: 01/24/20 15:52 Requesting physician: Billy Casper MD Consult reason: shortness of breath Reason For Visit: chest pain/leukocytosis Narrative: Date of service 01/24/2020 reason for consultation: shortness of breath History: Patient is a an 84-year-old female with history of CAD and 5 stents placed in [place] In 2018. She is now followed by Dr. Lazaro. Last week she did undergo a cardiac catheterization. She was having severe dyspnea prior to her angiogram. Decision was made to proceed directly to cardiac catheterization to define her anatomy. She did undergo a complex PCI to the mid PDA with a 2.75 x 12 mm drug-eluting stent. There was severe tortuosity and poor guide support. There is also an ostial 50% lesion. She also had stents in the LAD which were patent. She did have nonobstructive ramus disease and 80% small distal circumflex disease. Normal EDP normal EF. After her angiogram patient did have some chest pain. She was given morphine. Troponins were elevated and they did peak over 2. She also had musculoskeletal chest pain. Symptoms stabilized enough that she was discharged the following day. She does state though that she had chest pain on the night of discharge and eventually her chest pain did resolve. She does have reproducible chest wall pain but her chest pain that she describes after her angiogram was different than this. Since her angiogram, her dyspnea continues to worsen. She did see Dr. Lazaro yesterday who ordered a CT angiogram to rule out for PE. She did not have a PE but did have small bilateral effusions as well as some emphysema. Cardiomegaly was noted also. Because of her continued and worsening symptoms she came to the ER today and was admitted. She has been having some pain in between her shoulder blades and up into her jaw On the night of discharge. She has been weake
[2020-01-24] MEDS: ALBUTEROL SULFATE (*SP) AEROSOL 1 PUFF 2 PUFF INHALATION ×2 (16:07→20:07)
[2020-01-24] MEDS: FUROSEMIDE INJ 40 MG/4 ML VIAL IV PUSH (16:59)
[2020-01-24] MEDS: POTASSIUM CHLORIDE 20 MEQ PACKET (FOR LIQUID) 40 MEQ PO (16:59)
[2020-01-24] MEDS: PANTOPRAZOLE 40 MG TABLET PO (17:03)
[2020-01-24] MEDS: METOPROLOL TARTRATE 12.5 MG TABLET PO (21:18)
[2020-01-24] MEDS: ONDANSETRON INJ 4 MG/2 ML VIAL IV PUSH (21:18)
[2020-01-24] MEDS: LORazepam (*CRX) 0.5 MG TABLET PO (21:18)
[2020-01-24] MEDS: guaiFENesin 12 HR 600 MG TABCR PO (22:14)
[2020-01-24 22:38] LABS: CRP 1.5 mg/dL (<1.0)
[2020-01-25] VITALS (19 sets, daily range): BP systolic 103–144; BP diastolic 50–59; PULSE 66–86; RESP 16–20; TEMP 35.9–36.4; O2SAT 93–96
--- NOTE | 2020-01-25 | ECHO_ITS ---
Patient Info Name: Caroline Ferguson Age: 84 years : 1935 Gender: Female Ht: 60 in Wt: 172 lbs BSA: 1.85 m2 HR: 68 bpm BP: 138 / 54 mmHg Heart Rhythm: Sinus Rhythm Technical Quality: Good Exam Date: 01/25/2020 11:20 AM Exam Location: [facility] Patient Status: Inpatient Admit Date: 01/24/2020 Staff Ordering Physician: Michael Winchester MD Frame Sample And Pattern Supervisor: Toy Long, THEO, RT Attending Provider: Billy Casper MD Referring Physician: Ranulfo LOWERY; Exam Type: CA echo doppler color flow Study Info Indications R06.02 - Shortness of breath Complete two-dimensional, color flow and Doppler transthoracic echocardiogram is performed with contrast to opacify the left ventricle and to improve the deliniation of the left ventricle endocardial borders. Summary 1. Left ventricular chamber dimension is normal. 2. Left ventricular systolic function is hyperdynamic, estimated at >70%. 3. There is moderately increased left ventricular wall thickness. 4. The left ventricular diastolic function is grade I diastolic dysfunction. 5. Right ventricular chamber dimension is mildly enlarged. 6. There is mild mitral valve regurgitation. 7. There is mild tricuspid valve regurgitation. 8. There is mild pulmonic regurgitation. Left Ventricle Left ventricular chamber dimension is normal. Left ventricular systolic function is hyperdynamic, estimated at >70%. There is moderately increased left ventricular wall thickness. The left ventricular diastolic function is grade I diastolic dysfunction. Right Ventricle Right ventricular chamber dimension is mildly enlarged. Right ventricular systolic function is normal. Left Atria Left atrial chamber dimension is severely enlarged. Right Atria Right atrial chamber dimension is normal. Atrial Septum Intact interatrial septum visualized by color flow imaging. Aortic Valve The aortic valve is trileaflet. There is mild aortic valve sclerosis. There is no aortic valve stenosis. There is trace aortic valve regurgitation. Pulmonic Valve The pulmonic valve is normal. There is no pulmonic valve stenosis. There is mild pulmonic regurgitation. Mitral Valve The mitral valve has calcified annulus. There is no mitral valve stenosis. There is mild mitral valve regurgitation. Tricuspid Valve The tricuspid valve leaflets are normal. There is no significant tricuspid valve stenosis. There is mild tricuspid valve regurgitation. No pulmonary hypertension, estimated pulmonary arterial systolic pressure is 26 mmHg. Pericardium/Pleural The pericardium appears normal. There is no pericardial effusion. Inferior Vena Cava Normal inferior vena cava with >50% collapse upon inspiration consistent with normal right atrial pressure, 5 mmHg. Aorta The aortic root size at the sinus of Valsalva is normal. The prox ascending aorta size is normal. Left Ventricular Outflow Tract Name Value Normal LVOT 2D LVOT Diameter 2.0 cm LVOT Doppler LVOT Peak Gradient 4 mmHg LVOT Mean Gradient 2 mmHg LVOT VTI
[2020-01-25 04:46] LABS: Basophils Absolute Auto 0.1 K/mm3 (0.0-0.1); Basophils Percent Auto 0.8 % (0.2-1.2); Eosinophils Absolute Auto 0.3 K/mm3 (0-0.3); Eosinophils Percent Auto 2.5 % (0-4.4); Hemoglobin 13.5 g/dL (12.0-15.0); Immature Granulocyte Absolute 0.02 K/mm3 (0.00-0.031); Immature Granulocyte Percent A 0.2 % (0-0.5); Lymphocytes Absolute Auto 5.12 K/mm3 (0.9-3.2); Lymphocytes Percent Auto 41.6 % (18.3-44.2); Mean Corpuscular HGB Conc 33.8 g/dl (32-36); Mean Corpuscular Hemoglobin 30.8 pg (26-34); Mean Corpuscular Volume 91.3 fl (80-100); Mean Platelet Volume 9.3 fl (7.4-10.4); Monocytes Absolute Auto 0.9 K/mm3 (0.1-0.6); Monocytes Percent Auto 7.3 % (2.6-8.5); Neutrophils Absolute Auto 5.9 K/mm3 (1.3-6.7); Neutrophils Percent Auto 47.6 % (45.5-73.1); Platelet Count Result 377 k/mm3 (150-375); Red Blood Count 4.38 M/mm3 (4.2-5.4); Red Cell Distribution Width 12.9 % (11.5-14.5); White Blood Count 12.3 K/mm3 (4.5-10.0)
[2020-01-25 05:13] LABS: Alanine Aminotransferase 24 U/L (4-35); Albumin Level 3.7 g/dL (3.5-5.1); Alkaline Phosphatase 77 U/L (38-126); Anion Gap 6 mmol/L (8-16); Aspartate Amino Transferase 38 U/L (14-36); Bilirubin,Total 0.7 mg/dL (0.2-1.3); Blood Urea Nitrogen 9 mg/dL (7-17); Calcium 8.9 mg/dL (8.4-10.2); Carbon Dioxide 32 mmol/L (22-30); Chloride 100 mmol/L (98-107); Estimated CRCL calculation 47 ml/min; Estimated Glomerular Filt Rate > 60; Glucose 109 mg/dL (65-105); Magnesium 1.9 mg/dL (1.6-2.3); Potassium 4.2 mmol/L (3.4-5.0); Sodium 138 mmol/L (137-145)
[2020-01-25] MEDS: SUCRALFATE SUSP 100 MG/ML 10 ML UDC 1000 MG PO ×2 (05:33→15:52)
[2020-01-25 05:42] LABS: Atypical Lymphocytes Present; Large Platelets Present; Platelet Estimate Adequate (Adequate)
[2020-01-25] MEDS: ONDANSETRON INJ 4 MG/2 ML VIAL IV PUSH (06:59)
[2020-01-25] MEDS: ALBUTEROL SULFATE (*SP) AEROSOL 1 PUFF 2 PUFF INHALATION ×2 (08:38→13:00)
[2020-01-25] MEDS: METOPROLOL TARTRATE 12.5 MG TABLET PO (09:02)
[2020-01-25] MEDS: PANTOPRAZOLE 40 MG TABLET PO (09:02)
[2020-01-25] MEDS: FLUoxetine HCL 20 MG CAPSULE PO (09:02)
[2020-01-25] MEDS: ROSUVASTATIN 10 MG TABLET 20 MG PO (09:03)
[2020-01-25] MEDS: ISOSORBIDE MONONITRATE 30 MG TAB.ER.24H PO (09:03)
[2020-01-25] MEDS: THERAPEUTIC MULTIVITAMINS/MINERALS TAB (*BKC) 1 TABLET PO (09:04)
[2020-01-25] MEDS: CLOPIDOGREL BISULFATE 75 MG TABLET PO (09:04)
[2020-01-25] MEDS: ASPIRIN 81 MG CHEWABLE TABLET PO (09:04)
[2020-01-25] MEDS: PERFLUTREN LIPID MICROSPHERES 1.5 ML VIAL DILUTED TO 10 ML TOTAL VOLUME IV PUSH (11:51)
[2020-01-25] MEDS: guaiFENesin 12 HR 600 MG TABCR PO ×2 (12:06→20:27)
--- NOTE | 2020-01-25 14:53 | PM.PNCARD ---
Progress Note: A&P Assessment and Plan (1) CAD (coronary artery disease), [place] coronary artery: Code(s): I25.10 - Atherosclerotic heart disease of [place] coronary artery without angina pectoris Status: Acute Assessment and Plan: significant disease. probable [place] last week. It was a complicated case due to tortuosity. Continue aspirin and clopidogrel. Also continue isosorbide mononitrate, rosuvastatin. will increase her metoprolol tartrate 25 mg p.o. b.i.d. both because of her palpitations and as an antianginal agent. temporarily Plan on repeat coronary angiogram but this may happen as an outpatient at this point since she is feeling much better. (2) Elevated troponin: Code(s): R77.8 - Other specified abnormalities of plasma proteins Status: Acute Assessment and Plan: Trending down. Likely secondary to event from last week. (3) Chest pain: Code(s): R07.9 - Chest pain, unspecified Status: Acute Assessment and Plan: As above (4) Dyspnea: Code(s): R06.00 - Dyspnea, unspecified Status: Acute Assessment and Plan: much improved. Will give another dose of furosemide 40 mg IV x1. PA and lateral chest x-ray tomorrow. (5) Essential hypertension: Code(s): I10 - Essential (primary) hypertension Status: Acute (6) Palpitations: Code(s): R00.2 - Palpitations Status: Acute Assessment and Plan: metoprolol will be started. Telemetry monitoring (7) Fibromyalgia: Code(s): M79.7 - Fibromyalgia Status: Acute Assessment and Plan: she does have fibromyalgia pain but her pain last week and recently is different Subjective Date/time seen: 01/25/20 14:53 Interval history: 84-year-old with CAD and volume overload Date of service 01/25/2020: She feels much better with diuresis and low-dose metoprolol therapy. She is not short of breath at rest. She has no chest pain. Review of Systems Review of Systems: All systems reviewed & are unremarkable except as noted in HPI and below Constitutional: Constitutional: Reports fatigue, Denies headache(s), Reports lethargy and Reports weakness Eyes: Eyes: Denies blurry vision ENT: Reports Normal hearing present, Denies headache(s), Denies lip swelling and Denies neck pain Cardiovascular: Cardiovascular: Denies chest pain, Denies dyspnea and Denies dyspnea on exertion Respiratory: Respiratory: Reports dyspnea and Reports dyspnea on exertion Gastrointestinal: Gastrointestinal: Reports nausea Genitourinary: Genitourinary: Denies flank pain Musculoskeletal: Musculoskeletal: Denies neck pain and Denies numbness Integumentary/Breasts: Skin/Breast: Denies dry skin Neurologic: Reports Normal hearing present, Denies headache(s), Denies numbness and Reports weakness Psychiatric: Psychiatric: Reports anxiety Endocrine: Endocrine: Reports fatigue Hematologic/Lymphatic: Hematologic/Lymphatic: Denies easy bleeding Allergic/Immunologic: Allergic/Immunologic: Denies lip swelling Exam Narrative: Exam Narrative: Patient is awake alert. Appears to be in no acute distress And comfortable Const: General: comfortable and no acute distress HENMT: General nose exam: no epistaxis Eyes: Sclera: sclerae normal Neck: Neck: supple and no JVD Chest: Other: patient does have reproducible chest wall pain to palpation Resp: Auscultation: diminished lung sounds Cardio: Rhythm: regular rhythm Skin: General skin exam: normal color Neuro: Cranial nerves: Yes Normal hearing present Cognition (Neuro): normal cognition Speech: normal speech Extrem: General: no edema Psych: Affect: Anxious affect present Objective Data Vital Signs Vital Signs: Vital Signs - 24 hr 01/24/20 16:00 01/24/20 16:07 01/24/20 16:54 Temperature 37.0 C Pulse Rate 101 H 91 91 Respiratory Rate 18 22 H Blood Pressure 170/67 H Pulse Oximetry 95 94 01/24/20
--- NOTE | 2020-01-25 15:45 | PM.IMPN ---
Progress Note: A&P Assessment and Plan (1) Chest pain: Code(s): R07.9 - Chest pain, unspecified Status: Acute (2) Elevated troponin: Code(s): R77.8 - Other specified abnormalities of plasma proteins Status: Acute Assessment and Plan: low and trending down. Probable residual from previous non ST elevation [place]. Cardiology has seen and is considering repeat catheterization but timing is not quite known. Beta-erin metoprololis added to her medical regime and increased today to 25 Q 12 (3) Leukocytosis, unspecified: Code(s): D72.829 - Elevated white blood cell count, unspecified Status: Acute Assessment and Plan: probable stress related. No obvious source of any infection with CT scan showing no infiltrate, and urinalysis benign. WBC down today and will recheck in a.m. (4) Hypertension: Code(s): I10 - Essential (primary) hypertension Status: Inactive Assessment and Plan: well controlled continue her beta-erin and nitrate (5) Chronic obstructive pulmonary disease: Code(s): J44.9 - Chronic obstructive pulmonary disease, unspecified Status: Inactive Assessment and Plan: continue inhaler (6) Coronary artery disease: Code(s): I25.10 - Atherosclerotic heart disease of [place] coronary artery without angina pectoris Status: Inactive Assessment and Plan: as above with elevated troponin continue dual anti-platelet, nitrate, and beta-erin with statin (7) Gastroesophageal reflux disease: Code(s): K21.9 - Gastro-esophageal reflux disease without esophagitis Status: Inactive Assessment and Plan: PPI (8) DVT prophylaxis: Code(s): Z29.9 - Encounter for prophylactic measures, unspecified Status: Acute Assessment and Plan: Lovenox and increase activity Subjective Date/time seen: 01/25/20 15:45 Interval history: date of visit 01/24. 84-year-old with known coronary artery disease and recent stenting to a PDA presented with malaise, palpitations, and chest pain. Troponins were slightly elevated and thought to be possibly from recent non ST elevation [place]. This a.m. she complains that she feels horrible but no specific complaints of chest pain or shortness of breath Exam Narrative: Exam Narrative: blood pressure 132/54 pulse is 70 sat 95% on room air afebrile neck supple no adenopathy or bruits lungs clear CV regular rate rhythm hear no murmurs or gallops abdomen soft nontender no masses extremities without edema dorsalis pedis posterior tibial 1+ neuro alert no focal deficits Objective Data Vital Signs Vital Signs: Vital Signs - 24 hr 01/24/20 16:00 01/24/20 16:07 01/24/20 16:54 Temperature 37.0 C Pulse Rate 101 H 91 91 Respiratory Rate 18 22 H Blood Pressure 170/67 H Pulse Oximetry 95 94 01/24/20 18:00 01/24/20 19:40 01/24/20 20:00 Temperature 35.7 C L Pulse Rate 104 H 108 H 95 Respiratory Rate 20 Blood Pressure 128/79 Pulse Oximetry 96 01/24/20 20:07 01/24/20 20:08 01/24/20 21:18 Temperature Pulse Rate 97 97 103 H Respiratory Rate 20 20 Blood Pressure Pulse Oximetry 96 01/24/20 22:00 01/24/20 23:45 01/25/20 00:00 Temperature 36.1 C L Pulse Rate 98 85 78 Respiratory Rate 20 Blood Pressure 142/53 H Pulse Oximetry 94 01/25/20 02:00 01/25/20 03:48 01/25/20 04:00 Temperature 35.9 C L Pulse Rate 75 73 70 Respiratory Rate 16 Blood Pressure 138/54 L Pulse Oximetry 94 01/25/20 06:00 01/25/20 08:00 01/25/20 08:15 Temperature 36.4 C Pulse Rate 77 74 78 Respiratory Rate 18 Blood Pressure 121/50 L Pulse Oximetry 94 01/25/20 09:02 01/25/20 10:00 01/25/20 12:00 Temperature 36.2 C L Pulse Rate 78 74 70 Respiratory Rate 20 Blood Pressure 132/54 L Pulse Oximetry 95 01/25/20 12:23 Temperature Pulse Rate 68 Respiratory Rate Blood Pressure Pulse Oximetry Inta
[2020-01-25] MEDS: FUROSEMIDE INJ 40 MG/4 ML VIAL IV PUSH (15:51)
[2020-01-25] MEDS: ENOXAPARIN 40 MG/0.4 ML SYRINGE SUB-Q (20:26)
[2020-01-25] MEDS: METOPROLOL TARTRATE 25 MG TABLET PO (20:27)
[2020-01-25] MEDS: LORazepam (*CRX) 1 MG TABLET PO (20:28)
[2020-01-26] VITALS (10 sets, daily range): BP systolic 114–119; BP diastolic 42–57; PULSE 60–76; RESP 16–20; TEMP 36.3–36.7; O2SAT 93–97
[2020-01-26 04:57] LABS: Basophils Absolute Auto 0.1 K/mm3 (0.0-0.1); Basophils Percent Auto 0.8 % (0.2-1.2); Eosinophils Absolute Auto 0.4 K/mm3 (0-0.3); Hemoglobin 13.6 g/dL (12.0-15.0); Immature Granulocyte Absolute 0.04 K/mm3 (0.00-0.031); Immature Granulocyte Percent A 0.3 % (0-0.5); Lymphocytes Absolute Auto 5.85 K/mm3 (0.9-3.2); Lymphocytes Percent Auto 44.4 % (18.3-44.2); Mean Corpuscular Volume 91.1 fl (80-100); Mean Platelet Volume 9.6 fl (7.4-10.4); Monocytes Absolute Auto 0.9 K/mm3 (0.1-0.6); Monocytes Percent Auto 6.7 % (2.6-8.5); Neutrophils Absolute Auto 5.9 K/mm3 (1.3-6.7); Neutrophils Percent Auto 44.8 % (45.5-73.1); Platelet Count Result 425 k/mm3 (150-375); Red Blood Count 4.39 M/mm3 (4.2-5.4); Red Cell Distribution Width 12.7 % (11.5-14.5); White Blood Count 13.2 K/mm3 (4.5-10.0)
[2020-01-26 05:20] LABS: Anion Gap 8 mmol/L (8-16); Blood Urea Nitrogen 11 mg/dL (7-17); Calcium 9.1 mg/dL (8.4-10.2); Carbon Dioxide 32 mmol/L (22-30); Chloride 96 mmol/L (98-107); Estimated CRCL calculation 41 ml/min; Estimated Glomerular Filt Rate > 60; Glucose 106 mg/dL (65-105); Potassium 3.8 mmol/L (3.4-5.0); Sodium 136 mmol/L (137-145)
[2020-01-26] MEDS: SUCRALFATE SUSP 100 MG/ML 10 ML UDC 1000 MG PO (06:11)
[2020-01-26 06:28] LABS: Atypical Lymphocytes Present; Platelet Estimate Adequate (Adequate)
[2020-01-26] MEDS: ASPIRIN 81 MG CHEWABLE TABLET PO (08:45)
[2020-01-26] MEDS: ISOSORBIDE MONONITRATE 30 MG TAB.ER.24H PO (08:45)
[2020-01-26] MEDS: METOPROLOL TARTRATE 25 MG TABLET PO (08:45)
[2020-01-26] MEDS: FLUoxetine HCL 20 MG CAPSULE PO (08:45)
[2020-01-26] MEDS: THERAPEUTIC MULTIVITAMINS/MINERALS TAB (*BKC) 1 TABLET PO (08:45)
[2020-01-26] MEDS: ROSUVASTATIN 10 MG TABLET 20 MG PO (08:45)
[2020-01-26] MEDS: guaiFENesin 12 HR 600 MG TABCR PO (08:45)
[2020-01-26] MEDS: CLOPIDOGREL BISULFATE 75 MG TABLET PO (08:45)
[2020-01-26] MEDS: PANTOPRAZOLE 40 MG TABLET PO (08:45)
--- NOTE | 2020-01-26 14:15 | PM.PNCARD ---
Progress Note: A&P Assessment and Plan (1) CAD (coronary artery disease), [place] coronary artery: Code(s): I25.10 - Atherosclerotic heart disease of [place] coronary artery without angina pectoris Status: Acute Assessment and Plan: significant disease. probable MA last week. It was a complicated case due to tortuosity. Continue aspirin and clopidogrel. Also continue isosorbide mononitrate, rosuvastatin. continue metoprolol. Continue outpatient workup and decision regarding repeat angiogram to be defer to Dr. Lazaro as an outpatient (2) Elevated troponin: Code(s): R77.8 - Other specified abnormalities of plasma proteins Status: Acute Assessment and Plan: Trending down. Likely secondary to event from last week. (3) Chest pain: Code(s): R07.9 - Chest pain, unspecified Status: Acute Assessment and Plan: As above (4) Dyspnea: Code(s): R06.00 - Dyspnea, unspecified Status: Acute Assessment and Plan: much improved. start furosemide 20 mg p.o. daily (5) Essential hypertension: Code(s): I10 - Essential (primary) hypertension Status: Acute (6) Palpitations: Code(s): R00.2 - Palpitations Status: Acute Assessment and Plan: metoprolol will be started. Telemetry monitoring (7) Fibromyalgia: Code(s): M79.7 - Fibromyalgia Status: Acute Assessment and Plan: she does have fibromyalgia pain but her pain last week and recently is different Okay for discharge from my perspective Subjective Date/time seen: 01/26/20 14:15 Interval history: 84-year-old with CAD and volume overload Date of service 01/26/2020:She feels well and denies any chest pain shortness of breath Review of Systems Review of Systems: All systems reviewed & are unremarkable except as noted in HPI and below Constitutional: Constitutional: Reports fatigue, Denies headache(s), Reports lethargy and Reports weakness Eyes: Eyes: Denies blurry vision ENT: Reports Normal hearing present, Denies headache(s), Denies lip swelling and Denies neck pain Cardiovascular: Cardiovascular: Denies chest pain, Reports dyspnea and Reports dyspnea on exertion Respiratory: Respiratory: Reports dyspnea and Reports dyspnea on exertion Gastrointestinal: Gastrointestinal: Reports nausea Genitourinary: Genitourinary: Denies flank pain Musculoskeletal: Musculoskeletal: Denies neck pain and Denies numbness Integumentary/Breasts: Skin/Breast: Denies dry skin Neurologic: Reports Normal hearing present, Denies headache(s), Denies numbness and Reports weakness Psychiatric: Psychiatric: Reports anxiety Endocrine: Endocrine: Reports fatigue Hematologic/Lymphatic: Hematologic/Lymphatic: Denies easy bleeding Allergic/Immunologic: Allergic/Immunologic: Denies lip swelling Exam Narrative: Exam Narrative: Patient is awake alert. Appears to be in no acute distress And comfortable Const: General: comfortable and no acute distress HENMT: General nose exam: no epistaxis Eyes: Sclera: sclerae normal Neck: Neck: supple and no JVD Chest: Other: patient does have reproducible chest wall pain to palpation Resp: Auscultation: diminished lung sounds Cardio: Rhythm: regular rhythm Skin: General skin exam: normal color Neuro: Cranial nerves: Yes Normal hearing present Cognition (Neuro): normal cognition Speech: normal speech Extrem: General: no edema Psych: Affect: Anxious affect present Objective Data Vital Signs Vital Signs: Vital Signs - 24 hr 01/25/20 16:00 01/25/20 18:00 01/25/20 18:50 Temperature 36.4 C 35.9 C L Pulse Rate 77 81 86 Respiratory Rate 18 18 Blood Pressure 103/52 L 116/59 L Pulse Oximetry 93 96 01/25/20 20:00 01/25/20 20:27 01/25/20 22:00 Temperature Pulse Rate 79 78 68 Respiratory Rate Blood Pressure Pulse Oximetry 01/25/20 23:58 01/26/20 00:00 01/26/20 02:00 T
[2020-01-26] MEDS: FUROSEMIDE 20 MG TABLET PO (15:26)
--- NOTE | 2020-01-26 16:51 | PM.DS ---
DS: Admitting Diagnosis Admitting Diagnosis Admitting Diagnosis: Intermittent chest pain and shortness of breath. DS: Discharge Diagnosis Discharge Diagnosis (1) Chest pain: Code(s): R07.9 - Chest pain, unspecified Status: Acute Assessment and Plan: a typical and did not appear to be ischemic in nature. Seen by Cardiology and plan will be repeat catheterization in the near future to reassess recent stent and need for further stenting echo EF 50% with diastolic dysfunction. Cardiology added furosemide 20 mg daily to her regime. Will have BMP drawn in 1 week (2) Elevated troponin: Code(s): R77.8 - Other specified abnormalities of plasma proteins Status: Acute Assessment and Plan: low and trending down. Probable residual from previous non ST elevation [place]. Cardiology has seen and is planning repeat catheterization in future. Beta-erin, metoprolol added to her medical regime and increased to 25 Q 12 (3) Leukocytosis, unspecified: Code(s): D72.829 - Elevated white blood cell count, unspecified Status: Acute Assessment and Plan: . No obvious source of any infection with CT scan showing no infiltrate, and urinalysis benign. and slight increased amount of lymphocytes with atypical lymphocytes noted on smear suggesting possible early CLL. no anemia and platelets are adequate, follow-up with primary care WBC recheck in 1 week (4) Hypertension: Code(s): I10 - Essential (primary) hypertension Status: Inactive Assessment and Plan: well controlled continue her beta-erin and nitrate (5) Chronic obstructive pulmonary disease: Code(s): J44.9 - Chronic obstructive pulmonary disease, unspecified Status: Inactive Assessment and Plan: continue inhaler (6) Coronary artery disease: Code(s): I25.10 - Atherosclerotic heart disease of [place] coronary artery without angina pectoris Status: Inactive Assessment and Plan: as above with elevated troponin continue dual anti-platelet, nitrate, and beta-erin with statin (7) Gastroesophageal reflux disease: Code(s): K21.9 - Gastro-esophageal reflux disease without esophagitis Status: Inactive Assessment and Plan: PPI DS: Summary Hospital Course Hospital Course: 84-year-old hypertensive anxious white female with recent stenting to the PDA presented with atypical chest pain, palpitations, and shortness of breath. High-resolution CT showed no infiltrates and echocardiogram revealed no wall motion abnormalities with EF of 70% and grade 1 diastolic dysfunction. low-dose beta-erin was added to her regime as with furosemide at discharge. She had no further chest discomfort and did not complain of further palpitations with the beta-erin either. No arrhythmias seen on monitor.. She was discharged home to follow-up with cardiology for probable outpatient cardiac catheterization to reassess her anatomy. CBC and BMP in 1 week Time Spent with Patient Time attestation: Total time spent providing and/or coordinating discharge services: 35 minutes Exam Narrative: Exam Narrative: condition on discharge blood pressure 114/50 pulse 62 saturating 97% on room air afebrile lungs clear CV regular rate rhythm abdomen soft nontender extremities without edema distal pulses 1 to 2+ neuro alert oriented she was up and about feeling much better and able to be discharged home in stable condition DS: Data Data Completed and Pending Labs on day of discharge: Labs from last 24 hours 01/26/20 01/26/20 04:10 04:10 WBC 13.2 H RBC 4.39 Hgb 13.6 Hct 40.0 MCV 91.1 MCH 31.0 MCHC 34.0 RDW 12.7 Plt Count 425 H MPV 9.6 Immature Gran % (Auto) 0.3 Neut % (Auto) 44.8 L Lymph % (Auto) 44.4 H [place] % (Auto) 6.7 Eos % (Auto) 3.0 Baso % (Auto) 0.8 Lymph # (Auto) 5.85 H [place] # (Auto) 0.9 H Eos # (Auto) 0.4 H Baso # (Au
[2020-01-27 19:05] LABS: Procalcitonin 0.19 ng/mL (<0.10)
== END 2020-01-26 15:40 | disposition home or self-care (01) | DRG 281 ==
LOC: ANHED 08:48 → ANHIMU 12:49 → ANH3MEDSUR 01-25 18:12 → ANHIMU 01-25 18:15
PROVIDERS: Physician Assistant; Admitting Provider Internal Medicine; Emergency Provider General Practice; PCP Student in an Organized Health Care Education/Training Program; Visit Provider Internal Medicine
DX: R07.89 Other chest pain (principal); I22.2 Subsequent non-ST elevation (NSTEMI) myocardial infarction; J90 Pleural effusion, not elsewhere classified; I25.10 Atherosclerotic heart disease of native coronary artery without angina pectoris; K21.9 Gastro-esophageal reflux disease without esophagitis; J44.9 Chronic obstructive pulmonary disease, unspecified; D72.829 Elevated white blood cell count, unspecified; M79.7 Fibromyalgia; R00.2 Palpitations; I10 Essential (primary) hypertension; K58.9 Irritable bowel syndrome, unspecified; F41.9 Anxiety disorder, unspecified; Z96.652 Presence of left artificial knee joint; Z95.5 Presence of coronary angioplasty implant and graft; Z87.891 Personal history of nicotine dependence; Z98.42 Cataract extraction status, left eye; Z98.41 Cataract extraction status, right eye; Z90.49 Acquired absence of other specified parts of digestive tract; Z90.710 Acquired absence of both cervix and uterus
CPT/HCPCS: 36415; 36600; 70450; 71045; 71046; 71250; 80048; 80053; 81003; 82375; 82805; 83050; 83735; 84145; 84484; 85025; 85610; 85730; 86140; 93005; 93306; 94640; 94667; 94668; 96375; 97110; 97161; 97165; 99285; A9270; G0378; J1650; J1940; J2405; Q9957

== ENCOUNTER 2020-02-02 06:53 | Emergency (ER) | payer MEDICARE, MEDICAID, SELFPAY ==
[2020-02-02 06:54] VITALS: BP 109/96; PULSE 76; RESP 22; TEMP 36; O2SAT 96
[2020-02-02 07:19] VITALS: BP 116/67; PULSE 80; RESP 25; O2SAT 97
[2020-02-02 07:31] VITALS: BP 124/53; PULSE 73; RESP 25; O2SAT 99
[2020-02-02 07:46] VITALS: BP 122/52; PULSE 69; RESP 28; O2SAT 99
[2020-02-02 08:01] VITALS: BP 138/55; PULSE 70; RESP 23; O2SAT 99
[2020-02-02] MEDS: LORazepam INJ (*CRX) 2 MG/ML VIAL 1 MG IV PUSH (08:17)
--- NOTE | 2020-02-02 08:26 | ED.ANXIETY ---
HPI - Anxiety General Chief Complaint: Anxiety Stated Complaint: N/V/D, ANXIETY Time Seen by Provider: 02/02/20 08:13 Source: patient and family Mode of arrival: ambulatory Limitations: no limitations History of Present Illness HPI narrative: 84 years old white female presents with anxiety symptoms, restlessness, unable to eat, unable to sleep, unable to function as usual. Patient used to be on lorazepam for the last 20 years, stopped cold turkey 1 month ago. 2 weeks later patient started having the above symptoms. Patient denies any fever, chills, nausea, vomiting, suicidal or homicidal ideation. Related Data Home Medications Medication Instructions Recorded Confirmed Linzess 72 mcg PO DAILY 01/18/20 01/24/20 aspirin 81 mg PO DAILY 01/18/20 01/24/20 clopidogrel [Plavix] 75 mg PO DAILY 01/18/20 01/24/20 dicyclomine 20 mg PO BID PRN 01/18/20 01/24/20 fluoxetine 20 mg PO DAILY 01/18/20 01/24/20 isosorbide mononitrate 30 mg PO DAILY 01/18/20 01/24/20 multivitamin with minerals 1 tablet PO DAILY 01/18/20 01/24/20 [Multiple Vitamin-Minerals] nitroglycerin [Nitrostat] 0.4 mg SUBLINGUAL Q5M PRN 01/18/20 01/24/20 pantoprazole [Protonix] 40 mg PO QAM 01/18/20 01/24/20 rosuvastatin [Crestor] 20 mg PO DAILY 01/18/20 01/24/20 Anoro Ellipta 1 inh INHALATION DAILY 01/24/20 01/24/20 cyanocobalamin (vitamin B-12) 1,000 mcg IM MONTHLY 01/24/20 01/24/20 sucralfate 10 ml PO BID 01/24/20 01/24/20 lorazepam 0.5 mg PO BID PRN 01/25/20 01/25/20 Allergies Allergy/AdvReac Type Severity Reaction Status Date / Time No Known Allergies Allergy Mild Verified 01/24/20 13:54 Review of Systems Review of Systems: Narrative: CONSTITUTIONAL: Denies fever, chills, or sweats. EYES: Denies visual changes, redness, or discharge. ENT: Denies rhinorrhea, congestion, sore throat, or otalgia. CARDIOVASCULAR: Denies chest pain, palpitations, or edema. RESPIRATORY: Denies cough or dyspnea. GASTROINTESTINAL: Denies abdominal pain, nausea, vomiting, or diarrhea. GENITOURINARY: Denies dysuria or hematuria. SKIN: Denies rash or itching. MUSCULOSKELETAL: Denies back pain, joint pain, or myalgia. NEUROLOGIC: Denies headache, numbness, or weakness. PSYCHIATRIC: Denies anxiety or depression. [facility] Past Medical History Medical History Anxiety Chronic obstructive pulmonary disease Coronary artery disease Fibromyalgia Gastroesophageal reflux disease Hypertension Irritable bowel syndrome Surgical History Surgical History History of cardiac catheterization History of stent x6. Status post drug-eluting stent to the right PDA on 01/19/[address] Lazaro. History of carpal tunnel surgery of right wrist History of cataract extraction History of cholecystectomy History of hysterectomy History of total left knee replacement Family History Family History Sibling Emphysema of lung Chronic obstructive pulmonary disease Hypertension Father Asthma Social History Social History Social History: Surrogate decision maker: Kate Cesar and Kimberly Clay, daughters. Code status: Full code. Smoking status: Former smoker Second hand tobacco smoke exposure: Yes Alcohol intake: never Substance use: never Additional living arrangements comments: Resides in [place] with her 2 daughters and 4 cats. Gender identity (if verbalized by the patient): Female Spiritual care concerns: No Exam Narrative: Exam Narrative: General appearance: Well-developed, well-nourished Skin: Normal color Chest and respiratory: Airway patent, no respiratory distress, no accessory muscle use Heart: Regular rate/rhythm Abdomen: Soft, nontender, no organomegaly, quiet bowel sounds Vascular: Normal peripheral pulses, normal capillary refill. Musculoskeletal: Norm
[2020-02-02 08:31] VITALS: BP 111/71; PULSE 71; RESP 26; O2SAT 94
== END 2020-02-02 08:54 | disposition home or self-care (01) ==
PROVIDERS: Emergency Provider Emergency Medicine; PCP Student in an Organized Health Care Education/Training Program
DX: F41.9 Anxiety disorder, unspecified (principal); Z79.82 Long term (current) use of aspirin; Z79.02 Long term (current) use of antithrombotics/antiplatelets; J44.9 Chronic obstructive pulmonary disease, unspecified; I25.10 Atherosclerotic heart disease of native coronary artery without angina pectoris; M79.7 Fibromyalgia; K21.9 Gastro-esophageal reflux disease without esophagitis; I10 Essential (primary) hypertension; K58.9 Irritable bowel syndrome, unspecified; Z98.49 Cataract extraction status, unspecified eye; Z96.652 Presence of left artificial knee joint; Z87.891 Personal history of nicotine dependence
CPT/HCPCS: 96374; 99284; J2060

== ENCOUNTER 2020-07-06 16:06 | Outpatient (CLI) | payer MEDICARE, MEDICAID, SELFPAY ==
[2020-07-06 16:41] LABS: Basophils Absolute Auto 0.1 K/mm3 (0.0-0.1); Basophils Percent Auto 0.9 % (0.2-1.2); Eosinophils Absolute Auto 0.3 K/mm3 (0-0.3); Eosinophils Percent Auto 2.3 % (0-4.4); Hematocrit 44.3 % (37.0-47.0); Hemoglobin 14.9 g/dL (12.0-15.0); Immature Granulocyte Absolute 0.04 K/mm3 (0.00-0.031); Immature Granulocyte Percent A 0.3 % (0-0.5); Lymphocytes Percent Auto 51.3 % (18.3-44.2); Mean Corpuscular HGB Conc 33.6 g/dl (32-36); Mean Corpuscular Hemoglobin 30.8 pg (26-34); Mean Corpuscular Volume 91.7 fl (80-100); Mean Platelet Volume 9.8 fl (7.4-10.4); Monocytes Percent Auto 7.5 % (2.6-8.5); Neutrophils Absolute Auto 5.2 K/mm3 (1.3-6.7); Neutrophils Percent Auto 37.7 % (45.5-73.1); Platelet Count Result 305 k/mm3 (150-375); Red Blood Count 4.83 M/mm3 (4.2-5.4); White Blood Count 13.7 K/mm3 (4.5-10.0)
[2020-07-06 16:53] LABS: Anion Gap 5 mmol/L (8-16); Blood Urea Nitrogen 11 mg/dL (7-17); Calcium 8.5 mg/dL (8.4-10.2); Carbon Dioxide 30 mmol/L (22-30); Chloride 103 mmol/L (98-107); Estimated Glomerular Filt Rate 60; Glucose 102 mg/dL (65-105); Sodium 138 mmol/L (137-145)
== END 2020-07-06 16:07 | disposition home or self-care (01) ==
LOC: ANHLAB 16:09
PROVIDERS: PCP Student in an Organized Health Care Education/Training Program; Visit Provider Nurse Practitioner Adult Health
DX: R06.02 Shortness of breath (principal)
CPT/HCPCS: 36415; 80048; 85025

== ENCOUNTER 2021-04-01 09:40 | Outpatient (CLI) | payer MEDICARE, MEDICAID, SELFPAY ==
--- NOTE | 2021-04-01 12:41 | WPDPFTINT ---
PFT Procedure Performed PFT Procedure Performed Spirometry with Pre/Post Bronchodilator Plethysmography (Lung Vol) Diffusing Cap (DLCO) Flow Vol Loop PFT Interpretation This is a pulmonary function test with pre and post-bronchodilator spirometry, plethysmography and diffusing capacity. The test was performed and results interpreted in accordance with the 2019 and 2005 ATS/ERS Task Force guidelines respectively using the Global Lung Function Initiative-2012 reference equations. Patient demonstrated good effort and cooperation. Reproducibility criteria were met. The quality of the pre bronchodilator spirometry maneuver was Grade A and post bronchodilator spirometry maneuver was Grade A. Findings: Spirometry: The contour the inspiratory and expiratory flow tracing are normal. The pre bronchodilator FVC is 1.96 L, 95% predicted. The pre bronchodilator FEV1 is 1.60 L, 102% predicted. The FEV1: FVC ratio was 82%. The post bronchodilator FVC is 2.14 L, representing a 9% increase. The post bronchodilator FEV1 is 1.63 L, representing a 2% increase. The post bronchodilator FEV1: FVC ratio 76%. Plethysmography: The total lung capacity is 3.07 L, 69% predicted. The functional residual capacity is 1.61 L, 63% predicted predicted. The residual volume is 1.11 L, 49% predicted. Diffusing capacity: The absolute diffusion capacity is 10.1, 59% predicted. The diffusing capacity corrected for alveolar volume is 3.85, 91% predicted. Impression: There is a mild restrictive ventilatory abnormality with a normal FEV1. The spirometry is normal without evidence of an obstructive abnormality. There is no significant improvement after inhaling a single dose of albuterol. The absolute diffusing capacity is moderately decreased and normalizes when corrected for alveolar volume. There are no prior studies for comparison
== END 2021-04-01 09:41 | disposition home or self-care (01) ==
LOC: ANHPFT 09:44
PROVIDERS: PCP Student in an Organized Health Care Education/Training Program; Visit Provider Anesthesiology
DX: J43.9 Emphysema, unspecified (principal); R94.2 Abnormal results of pulmonary function studies
CPT/HCPCS: 94060; 94726; 94729

== ENCOUNTER 2021-04-02 11:19 | Outpatient (CLI) | payer MEDICARE, MEDICAID, SELFPAY ==
--- NOTE | ~2021-04-02 | CT_ITS ---
EXAMINATION: CT diagnostic chest wo con EXAM DATE: 04/02/2021 11:54 INDICATION: Dyspnea. TECHNIQUE: Spiral CT of the chest without contrast. Axial, coronal and sagittal images of the chest were reviewed. Coronal maximum intensity pixel images of chest reviewed. The dose-length product ( DLP) for this examination was 200.15 mGy-cm. The exposure was tailored according to patient size (au to mA exposure control), and iterative reconstruction (ASIR) was used as additional dose reduction [place]. Comparison is made to prior examination from 01/23/2020. FINDINGS: Left basilar calcified granuloma. Mild basilar intralobular septal thickening, interstitia l lung disease. Mild emphysema. Some hyperinflation. There are no pleural or pericardial effusions. Tracheobronchial tree is patent. There is no mediastinal, hilar or axillary lymphadenopathy. Th ere is no pneumothorax. Mild cardiomegaly. There are dense coronary arteries, could be severe lamonte nary arterial sclerosis and/or coronary artery stent(s), which are difficult to distinguish due to ca rdiac motion on this non-gated exam. Correlate with cardiac history and consider cardiology consult i f not recently evaluated. Splenic artery aneurysms again noted. There is moderate thoracic spondylo sis without osteoblastic or osteolytic lesions identified. IMPRESSION: 1. Mild chronic interstitial lung disease, emphysema and hyperinflation unchanged 2. Splenic artery aneurysms unchanged. 3. Mild cardiomegaly. Reviewed, dictated and finalized at location A. [employer] IMPRESSION: 1. Mild chronic interstitial lung disease, emphysema and hyperinflation unchan ged 2. Splenic artery aneurysms unchanged. 3. Mild cardiomegaly.
== END 2021-04-02 11:20 | disposition home or self-care (01) ==
PROVIDERS: PCP Student in an Organized Health Care Education/Training Program; Visit Provider Student in an Organized Health Care Education/Training Program
DX: R06.00 Dyspnea, unspecified (principal); J84.9 Interstitial pulmonary disease, unspecified; I51.7 Cardiomegaly
CPT/HCPCS: 71250

== ENCOUNTER 2021-07-18 15:57 | Outpatient (CLI) | payer MEDICARE, MEDICAID, SELFPAY ==
[2021-07-18 16:59] LABS: Basophils Absolute Auto 0.1 K/mm3 (0.0-0.1); Basophils Percent Auto 0.7 % (0.2-1.2); Eosinophils Absolute Auto 0.3 K/mm3 (0-0.3); Hematocrit 44.8 % (37.0-47.0); Immature Granulocyte Absolute 0.04 K/mm3 (0.00-0.031); Immature Granulocyte Percent A 0.3 % (0-0.5); Lymphocytes Absolute Auto 6.11 K/mm3 (0.9-3.2); Lymphocytes Percent Auto 41.5 % (18.3-44.2); Mean Corpuscular HGB Conc 33.5 g/dl (32-36); Mean Corpuscular Hemoglobin 31.1 pg (26-34); Mean Corpuscular Volume 92.8 fl (80-100); Mean Platelet Volume 9.8 fl (7.4-10.4); Monocytes Absolute Auto 0.9 K/mm3 (0.1-0.6); Monocytes Percent Auto 6.4 % (2.6-8.5); Neutrophils Absolute Auto 7.2 K/mm3 (1.3-6.7); Neutrophils Percent Auto 49.1 % (45.5-73.1); Platelet Count Result 349 k/mm3 (150-375); Red Blood Count 4.83 M/mm3 (4.2-5.4); Red Cell Distribution Width 12.3 % (11.5-14.5); White Blood Count 14.7 K/mm3 (4.5-10.0)
[2021-07-18 18:40] LABS: Alanine Aminotransferase 34 U/L (4-35); Albumin Level 3.7 g/dL (3.5-5.1); Alkaline Phosphatase 83 U/L (38-126); Anion Gap 5 mmol/L (8-16); Aspartate Amino Transferase 41 U/L (14-36); Bilirubin,Total 0.3 mg/dL (0.2-1.3); Blood Urea Nitrogen 9 mg/dL (7-17); Calcium 8.3 mg/dL (8.4-10.2); Carbon Dioxide 30 mmol/L (22-30); Chloride 99 mmol/L (98-107); Creatine Kinase 20 U/L (30-135); Estimated Glomerular Filt Rate > 60; Glucose 101 mg/dL (65-110); Sodium 134 mmol/L (137-145)
[2021-07-18 18:58] LABS: Free T4 Free Thyroxine 0.99 ng/mL (0.78-2.19)
[2021-07-18 19:41] LABS: Rheumatoid Factor < 8.6 IU/ML (<12)
[2021-07-22 17:46] LABS: ANA Cascade Screen Negative (Negative)
[2021-07-23 12:13] LABS: Anti Cyclic Citrullinated Pept <16 Units (<20)
[2021-07-24 05:42] LABS: Aldolase 7.9 U/L (<=8.1)
[2021-07-26 14:26] LABS: ANCA Screen Negative (Negative)
== END 2021-07-18 15:58 | disposition home or self-care (01) ==
PROVIDERS: PCP Student in an Organized Health Care Education/Training Program; Visit Provider Internal Medicine Pulmonary Disease
DX: J84.9 Interstitial pulmonary disease, unspecified (principal); J98.4 Other disorders of lung; R06.00 Dyspnea, unspecified; G47.10 Hypersomnia, unspecified; J44.9 Chronic obstructive pulmonary disease, unspecified
CPT/HCPCS: 36415; 80053; 82085; 82550; 84439; 84443; 85025; 86036; 86038; 86200; 86331; 86430; 86606; 86609

== ENCOUNTER 2021-08-05 11:30 | Outpatient (CLI) | payer MEDICARE, MEDICAID, SELFPAY ==
[2021-08-05 11:45] VITALS: PULSE 60; O2SAT 98
[2021-08-05 11:50] VITALS: PULSE 88; O2SAT 95
[2021-08-05 12:00] VITALS: PULSE 62; O2SAT 97
--- NOTE | 2021-08-05 12:04 | HOMEO2EVAL ---
Evaluation was performed at [facility] Home Oxygen Evaluation RC: Home Oxygen (O2) Evaluation Start: 08/05/21 12:03 Freq: Status: Active Protocol: RPE Activity Type Activity Date Activity User E-Sign Co-Sign Detail Recorded Client Recorded Date Recorded By Document 08/05/21 11:45 SOLOMON [id number] 08/05/21 12:04 SOLOMON Document 08/05/21 11:50 SOLOMON [id number] 08/05/21 12:04 SOLOMON Document 08/05/21 12:00 SOLOMON [id number] 08/05/21 12:04 SOLOMON 08/05/21 08/05/21 08/05/21 11:45 11:50 12:00 Home O2 Evaluation Test Phase Resting Exercise Resting Oxygen Delivery Room Air Room Air Room Air Pulse Oximetry (90-100 %) 98 95 97 Pulse Rate (60-100 beats/min) 60 88 62 Ambulation Distance (feet) 300 Ambulation Distance (meters) 91.43 Home Oxygen Evaluation Comments NO HOME O2 NEEDED AT THIS TIME. Treatment Charges O2 Evaluation - Outpatient
== END 2021-08-05 11:31 | disposition home or self-care (01) ==
LOC: ANHPFT 11:32
PROVIDERS: PCP Student in an Organized Health Care Education/Training Program; Visit Provider Internal Medicine Pulmonary Disease
DX: R06.00 Dyspnea, unspecified (principal)
CPT/HCPCS: 94618

== ENCOUNTER 2023-12-15 21:32 | Emergency (ER) | payer MEDICARE, MEDICAID, SELFPAY ==
[2023-12-15 22:40] VITALS: BP 118/70; PULSE 115; RESP 20; TEMP 36.3; O2SAT 98
[2023-12-16 00:41] LABS: Basophils Absolute Auto 0.1 K/mm3 (0.0-0.1); Basophils Percent Auto 0.5 % (0.2-1.2); Eosinophils Percent Auto 0.1 % (0-4.4); Hematocrit 43.4 % (37.0-47.0); Immature Granulocyte Absolute 0.14 K/mm3 (0.00-0.031); Immature Granulocyte Percent A 0.6 % (0-0.5); Lymphocytes Absolute Auto 4.08 K/mm3 (0.9-3.2); Lymphocytes Percent Auto 17.2 % (18.3-44.2); Mean Corpuscular HGB Conc 34.6 g/dl (32-36); Mean Corpuscular Hemoglobin 32.1 pg (26-34); Mean Corpuscular Volume 92.9 fl (80-100); Mean Platelet Volume 9.6 fl (7.4-10.4); Monocytes Absolute Auto 1.6 K/mm3 (0.1-0.6); Monocytes Percent Auto 6.8 % (2.6-8.5); Neutrophils Absolute Auto 17.8 K/mm3 (1.3-6.7); Neutrophils Percent Auto 74.8 % (45.5-73.1); Platelet Count Result 329 k/mm3 (150-375); Red Blood Count 4.67 M/mm3 (4.2-5.4); Red Cell Distribution Width 12.4 % (11.5-14.5); White Blood Count 23.8 K/mm3 (4.5-10.0)
[2023-12-16 01:24] LABS: Alanine Aminotransferase 59 U/L (6-35); Albumin Level 3.5 g/dL (3.5-5.1); Alkaline Phosphatase 117 U/L (38-126); Anion Gap 10 mmol/L (4-12); Aspartate Amino Transferase 36 U/L (14-36); Bilirubin,Total 0.7 mg/dL (0.2-1.3); Blood Urea Nitrogen 8 mg/dL (7-17); Calcium 8.4 mg/dL (8.4-10.2); Carbon Dioxide 28 mmol/L (22-30); Chloride 91 mmol/L (98-107); Estimated CRCL calculation 46 ml/min; Estimated Glomerular Filt Rate > 60; Glucose 126 mg/dL (65-110); Lipase 18 U/L (23-300); Sodium 129 mmol/L (137-145)
[2023-12-16] MEDS: SODIUM CHLORIDE 0.9% IV 1,000 ML 999 ML IV CONT (01:27)
[2023-12-16 01:39] LABS: Potassium 3.3 mmol/L (3.4-5.0)
[2023-12-16 01:45] LABS: Add Urine Microscopic? YES; Appearance Urine Cloudy (Clear); Bacteria Urine 4+ /hpf; Bilirubin Urine Negative (Negative); Blood Urine 1+ (Negative); Color Urine Yellow (Yellow); Glucose Urine UA Negative (Negative); Ketones Urine 1+ mg/dL (Negative); Leukocyte Esterase Ur 3+ LEU/UL (Negative); Need Manual Microscopic Reviewed; Nitrate Urine Positive (Negative); Non Pathogenic Casts 0-2; Protein Urine Negative (Negative); RBC Urine 21-50 /hpf (0-2); Specific Grav Ur 1.008 (1.001-1.035); Squamous Epithelial Cell Urine Few /hpf (Few); Urobilinogen Urine 0.2 mg/dL (<2.0); pH Urine 6.5 (5.0-9.0)
--- NOTE | 2023-12-16 02:27 | ED.GENADULT ---
HPI - General Adult General Chief complaint: Nausea/Vomiting/Diarrhea Stated complaint: weakness, diarrhea Time Seen by Provider: 12/16/23 00:49 History of Present Illness HPI narrative: Patient is an 80-year-old female who presents to the emergency department this evening complaining of a diarrhea for the past 5 days. Patient states that she recently finished a course of steroids and a Z-Emanuel on Thursday for bronchitis. She states that today she started to feel nauseous and had 1 or 2 vomiting episodes but up until then it was purely diarrhea. Denies any abdominal pain denies any fevers or chills and denies any sick contacts at home. Patient also denies any chest pain or shortness of breath. No additional symptoms or concerns at this time. Related Data Home Medications Medication Instructions Recorded Confirmed aspirin 81 mg chewable tablet 81 mg PO DAILY 01/18/20 07/18/21 clopidogrel 75 mg tablet (Plavix) 75 mg PO DAILY 01/18/20 07/18/21 dicyclomine 20 mg tablet 20 mg PO BID PRN Abdominal 01/18/20 07/18/21 Discomfort fluoxetine 20 mg capsule 20 mg PO DAILY 01/18/20 07/18/21 isosorbide mononitrate 30 mg 30 mg PO DAILY 01/18/20 07/18/21 tablet,extended release 24 hr linaclotide 72 mcg capsule 72 mcg PO DAILY 01/18/20 07/18/21 (Linzess) multivitamin with minerals 1 tablet PO DAILY 01/18/20 07/18/21 (Multiple Vitamin-Minerals tablet) nitroglycerin 0.4 mg sublingual 0.4 mg sublingual Q5M PRN Chest 01/18/20 07/18/21 tablet (Nitrostat) Pain pantoprazole 40 mg tablet,delayed 40 mg PO QAM 01/18/20 07/18/21 release (Protonix) rosuvastatin 20 mg tablet (Crestor) 20 mg PO DAILY 01/18/20 07/18/21 cyanocobalamin (vitamin B-12) 1,000 mcg IM MONTHLY 01/24/20 07/18/21 1,000 mcg/mL injection solution sucralfate 100 mg/mL oral 10 ml PO BID 01/24/20 07/18/21 suspension lorazepam 0.5 mg tablet 0.5 mg PO BID PRN Anxiety 01/25/20 07/18/21 albuterol sulfate 90 mcg/actuation 1 puff inhalation Q4H PRN 07/18/21 07/18/21 aerosol inhaler Allergies Allergy/AdvReac Type Severity Reaction Status Date / Time No Known Allergies Allergy Mild Verified 12/15/23 22:50 Review of Systems Review of Systems: All systems are reviewed and are negative unless stated otherwise in the HPI. PMFSH Past Medical History Medical History Anxiety Chronic obstructive pulmonary disease Coronary artery disease Fibromyalgia Gastroesophageal reflux disease Hypertension Irritable bowel syndrome Surgical History Surgical History History of cardiac catheterization History of stent x6. Status post drug-eluting stent to the right PDA on 01/19/[address] Lazaro. History of carpal tunnel surgery of right wrist History of cataract extraction History of cholecystectomy History of hysterectomy History of total left knee replacement Family History Family History Sibling Emphysema of lung Chronic obstructive pulmonary disease Hypertension Father Asthma Social History Social History Social History: Surrogate decision maker: Kate Guerrero and Kimberly Clay, daughters. Code status: Full code. Smoking status: Former smoker Second hand tobacco smoke exposure: Yes Alcohol intake: never Substance use: never Living arrangements: with family Additional living arrangements comments: Resides in [place] with her 2 daughters and 4 cats. Gender identity (if verbalized by the patient): Female Spiritual care concerns: No Exam Narrative: General: Alert, awake, afebrile, in no acute distress. HEENT: PERRL, no rhinorrhea, no post nasal drip, oropharynx clear. Cardiovascular: Regular rate and rhythm, no murmurs, rubs or gallops, no peripheral edema. Respiratory: Clear to auscultation bilaterally, no ta
[2023-12-16] MEDS: ONDANSETRON INJ 4 MG/2 ML VIAL IV PUSH (02:29)
[2023-12-16 02:48] VITALS: BP 130/84; PULSE 97; RESP 16; O2SAT 98
== END 2023-12-16 02:50 | disposition home or self-care (01) ==
PROVIDERS: Emergency Provider Emergency Medicine; PCP Student in an Organized Health Care Education/Training Program
DX: R19.7 Diarrhea, unspecified (principal); R11.2 Nausea with vomiting, unspecified; J44.9 Chronic obstructive pulmonary disease, unspecified; I25.10 Atherosclerotic heart disease of native coronary artery without angina pectoris; M79.7 Fibromyalgia; K21.9 Gastro-esophageal reflux disease without esophagitis; K58.9 Irritable bowel syndrome, unspecified; F41.9 Anxiety disorder, unspecified; Z98.49 Cataract extraction status, unspecified eye; Z90.49 Acquired absence of other specified parts of digestive tract; Z90.710 Acquired absence of both cervix and uterus; Z96.652 Presence of left artificial knee joint; Z79.02 Long term (current) use of antithrombotics/antiplatelets; Z79.899 Other long term (current) drug therapy
CPT/HCPCS: 36415; 80053; 81001; 83690; 85025; 87077; 87086; 87088; 87186; 96361; 96374; 99284; J2405; J7030